=== PATIENT | male | born 1945 | race Caucasian/White ===

== ENCOUNTER 2025-04-11 20:05 | Emergency (ER) | payer OTHER, MEDICARE, SELFPAY ==
[2025-04-11] VITALS (7 sets, daily range): BP systolic 134–150; BP diastolic 62–67; PULSE 80–99; RESP 18–30; TEMP 37.2; O2SAT 90–92; BMI 24.9
--- NOTE | 2025-04-11 20:27 | DI.RAD.S_ITS ---
PROCEDURE: XR CHEST 1V INDICATIONS: suspected sepsis TECHNIQUE: One view of the chest was acquired. COMPARISON: Located Within [facility], CR, XR CHEST 2 VIEWS, 04/06/2025, 11:22. FINDINGS: Surgical changes and devices: None. Lungs and pleura: More prominent consolidation in the right lower lung as well as new consolidation in both upper lobes laterally and probably at the left base. Mediastinum: Mediastinal contours appear normal. Heart size is normal. Bones and chest wall: No suspicious bony lesions. Overlying soft tissues appear unremarkable. IMPRESSION: More prominent bilateral areas of consolidation as described, likely due to evolving multi lobar pneumonia. Dictated by: Ronald Dallas M.D. on 04/11/2025 at 21:02 Approved by: Ronald Dallas M.D. on 04/11/2025 at 21:07
--- NOTE | 2025-04-11 20:33 | EKG_ITS ---
[address] [address] Test Date: 2025-04-11 Pat Name: Tylor Hubbard Department: [facility] Room: Gender: Male Workers Compensation Consultant: : 1945 Requested By: Order Number: [id number] Reading MD: Pascual Evangelista Measurements Intervals [place] Rate: 97 P: 29 [place]: 142 QRS: -9 QRSD: 80 T: 40 QT: 332 QTc: 421 Interpretive Statements Sinus rhythm with occasional premature ventricular complexes Electronically Signed On 04-14-2025 17:11:31 PDT by Pascual Evangelista
--- NOTE | 2025-04-11 21:09 | PC.NURSE ---
pt states he has been taking a zpak for his pneumonia and he was feeling better until today, his last pill was yesterday, he thinks he just needed a little more medication.
[2025-04-11 21:18] LABS: Add Manual Diff / Slide Review NO; Basophils Absolute Auto 100 /uL (0-100); Basophils Percent Auto 0.8 % (0-2); Eosinophils Absolute Auto 1400 /uL (0-450); Eosinophils Percent Auto 10.1 % (2-4); Hematocrit 35.5 % (41-53); Hemoglobin 11.8 g/dL (13.5-17.5); Lymphocytes Absolute Auto 900 /uL (1100-4500); Lymphocytes Percent Auto 6.9 % (25-40); Mean Corpuscular HGB Conc 33.1 % (30-36); Mean Corpuscular Hemoglobin 28.3 PG (26-34); Mean Corpuscular Volume 85.7 fL (80-100); Monocytes Absolute Auto 1200 /uL (0-900); Monocytes Percent Auto 8.7 % (3-14); Neutrophils Absolute Auto 9900 /uL (1500-7000); Neutrophils Percent Auto 73.5 % (50-75); Platelet Count 358 X10^3/uL (150-400); Red Blood Cell Count 4.15 X10^6/uL (4.5-5.9); White Blood Cell Count 13.5 X10^3/uL (4.5-11.0)
[2025-04-11 21:24] LABS: INR 1.3 (0.9-1.3); Prothrombin Time 15.2 SECONDS (9.4-12.5)
[2025-04-11 21:27] LABS: PTT Partial Thromboplastin Tim 30 SECONDS (25.1-36.5)
[2025-04-11 21:39] LABS: Alanine Aminotransferase 29 IU/L (<50); Albumin 2.9 g/dL (3.5-5.0); Albumin Globulin Ratio 0.9 (1.0-2.8); Alkaline Phosphatase 85 U/L (38-126); Aspartate Aminotransferase 30 IU/L (17-59); BUN Creatinine Ratio 17.9 (6-22); Bilirubin Total 0.4 mg/dL (0.2-1.3); Blood Urea Nitrogen 15 mg/dL (9-20); Calcium 8.2 mg/dL (8.4-10.2); Carbon Dioxide 25 mmol/L (22-32); Chloride 102 mmol/L (98-107); Estimated Glomerular Filt Rate > 60 mL/min (>60); Globulin 3.3 g/dL (1.7-4.1); Glucose 155 mg/dL (70-99); HEMOLYSIS < 15 (0-50); Lipase 62 U/L (23-300); Potassium 4.2 mmol/L (3.4-5.1); Sodium 134 mmol/L (137-145); Total Protein 6.2 g/dL (6.3-8.2)
[2025-04-11 21:56] LABS: Procalcitonin 0.613 ng/mL (<0.5)
--- NOTE | 2025-04-11 22:27 | ED_ITS ---
HPI - URI/Sore Throat General Chief Complaint: Upper Respiratory Symptoms Stated Complaint: Pneumonia, x3wks, fever and chills Time Seen by Provider: 04/11/25 22:07 Source: patient Mode of arrival: Ambulatory History of Present Illness HPI Narrative: 79-year-old male has had ongoing cough for at least the last 3 weeks, fevers and chills last week, had completed a 5 day course of oral azithromycin 2 days ago, based on outpatient chest x-ray showing a pneumonia at [facility], was feeling better, now with increased cough, productive of green sputum, use of an inhaler. Feeling a little bit more short of breath. Denies chest pain. No longer feels feverish today. Related Data Previous Rx's Medication Instructions Recorded amoxicillin 875 mg-potassium 1 tab PO BID #20 tabs 04/11/25 clavulanate 125 mg tablet doxycycline hyclate 100 mg capsule 100 mg PO BID #20 caps 04/11/25 Allergies Allergy/AdvReac Type Severity Reaction Status Date / Time No Known Drug Allergies Allergy Verified 04/11/25 20:18 Patient History Social History Smoking Status: Former smoker Smoking Status: Former smoker Exam Narrative Exam Narrative: GENERAL: Well-developed patient, in mild distress. HEAD: Atraumatic. Normocephalic. EYES: Pupils equal round and reactive. Extraocular motions intact. No scleral icterus. No injection or drainage. ENT: Nose without bleeding, purulent drainage. Throat without erythema, tonsillar hypertrophy or exudate. Airway patent. NECK: Trachea midline. Non tender CARDIOVASCULAR: Regular rate and rhythm without murmurs, gallops, or rubs. RESPIRATORY: Clear to auscultation. Breath sounds equal bilaterally. Right basilar rhonchi, no respiratory distress, no retractions, speaks in full sentences. GASTROINTESTINAL: Abdomen soft, non-tender, nondistended. EXTREMITIES: No edema or joint tenderness. BACK: Nontender without deformity or crepitance. No flank tenderness. NEURO: AOx3. Motor functions grossly nonfocal SKIN: No rash or erythema of visible areas Initial Vital Signs Initial Vital Signs: Vital Signs Temperature 98.9 F 04/11/25 20:18 Pulse Rate 99 H 04/11/25 20:18 Respiratory Rate 18 04/11/25 20:18 Blood Pressure 135/64 04/11/25 20:18 Pulse Oximetry 92 04/11/25 20:18 Oxygen Delivery Method Room Air 04/11/25 20:18 Course Orders Ordered: ED Orders 04/11/25 20:27 XR chest 1V Stat EKG-12 Lead Stat RT Consult Eval and Treat NOW 04/11/25 21:10 Complete Blood Count AUTO DIFF Stat Comprehensive Metabolic Panel Stat Lactate (Lactic Acid) Stat Lipase Stat PTT Partial Thromboplastin Juwan Stat Procalcitonin Stat Prothrombin Time INR Stat 04/11/25 22:10 Blood Culture Stat Lactate (Lactic Acid) Stat Discontinued Medications Doxycycline Hyclate (Doxycycline Hyclate 100 Mg Tablet) 100 mg PO NOW ONE Stop: 04/11/25 22:30 Last Admin: 04/11/25 22:56 Dose: 100 mg Documented By: ALMAS Sodium Chloride (Normal Saline 0.9%) 1,000 mls @ 1,000 mls/hr IV BOLUS ONE Stop: 04/11/25 21:26 Last Admin: 04/11/25 23:05 Dose: Not Given Documented By: ALMAS Ceftriaxone Sodium 1,000 mg/ (Sodium Chloride) 100 mls @ 200 mls/hr IV NOW ONE Stop: 04/11/25 22:30 Last Infusion: 04/11/25 23:21 Dose: Infused Documented By: Admin: 04/11/25 22:55 Dose: 200 mls/hr Documented By: ALMAS Ondansetron HCl (Ondansetron 4 Mg/2 Ml Inj) 4 mg IV NOW PRN PRN Reason: Nausea And Vomiting Ondansetron HCl (Ondansetron 4 Mg Odt) 4 mg PO NOW PRN PRN Reason: Nausea And Vomiting Vital Signs Vital signs: Vital Signs - 8 hr 04/11/25 20:18 04/11/25 20:39 04/11/25 21:00 Temperature 98.9 F Pulse Rate 99 H 97 H 97 H Respiratory Rate 18 30 H 28 H Blood Pressure 135/64 Pulse Oximetry 92 90 L 91 Oxygen Delivery Method Room Air 04/11/25 21:00 04/11/25 21:30 04/11/25 21:30 Temperature Pulse Rate 95 H Respiratory Rate 22 Blood Pressure 134/65 139/63 Pulse Oximetry 90 L Oxygen Delivery Method 04/11/25 22:00 04/11/25 22:00 04/11/25 22:30 Temperature Pulse Rate 83 Respiratory Rate 25 H Blood Pressure 134/64 136/62 Pulse Oximetry 92 Oxygen Delivery Method 04/11/25 22:30 04/11/25 23:00 04/11/25 23:00 Temperature Pulse Rate 80 86 Respiratory Rate 26 H 28 H Blood Pressure 150/67 H Pulse Oximetry 91 Oxygen Delivery Method MDM - URI/Sore Throat Lab Data Lab results narrative: White blood cell count 17255, hemoglobin 11.8, platelets adequate. Glucose 155. Renal function normal. Sodium 134 low, potassium 4.2 normal. Serum CO2 25. Liver functions normal. Procalcitonin elevated. 04/11/25 21:10 04/11/25 21:10 Labs: Lab Results 04/11/25 04/11/25 Range/Units 21:10 22:10 WBC 13.5 H (4.5-11.0) X10^3/uL RBC 4.15 L (4.5-5.9) X10^6/uL Hgb 11.8 L (13.5-17.5) g/dL Hct 35.5 L (41-53) % MCV 85.7 (80-100) fL MCH 28.3 (26-34) PG MCHC 33.1 (30-36) % RDW 14.0 (11.6-14.8) % Plt Count 358 (150-400) X10^3/uL Neut % (Auto) 73.5 (50-75) % Lymph % (Auto) 6.9 L (25-40) % Johnson % (Auto) 8.7 (3-14) % Eos % (Auto) 10.1 H (2-4) % Baso % (Auto) 0.8 (0-2) % Neut # (Auto) 9900 H (9272-1156) /uL Lymph # (Auto) 900 L (5628-3725) /uL Johnson # (Auto) 1200 H (0-900) /uL Eos # (Auto) 1400 H (0-450) /uL Baso # (Auto) 100 (0-100) /uL PT 15.2 H (9.4-12.5) SECONDS INR 1.3 (0.9-1.3) APTT 30 (25.1-36.5) SECONDS Sodium 134 L (137-145) mmol/L Potassium 4.2 (3.4-5.1) mmol/L Chloride 102 (98-107) mmol/L Carbon Dioxide 25 (22-32) mmol/L BUN 15 (9-20) mg/dL Creatinine 0.84 (0.66-1.25) mg/dL Estimated GFR > 60 (>60) mL/min BUN/Creatinine Ratio 17.9 (6-22) Glucose 155 H (70-99) mg/dL Lactate 1.0 0.9 (0.7-2.1) mmol/L Calcium 8.2 L (8.4-10.2) mg/dL Total Bilirubin 0.4 (0.2-1.3) mg/dL AST 30 (17-59) IU/L ALT 29 (<50) IU/L Alkaline Phosphatase 85 (38-126) U/L Total Protein 6.2 L (6.3-8.2) g/dL Albumin 2.9 L (3.5-5.0) g/dL Globulin 3.3 (1.7-4.1) g/dL Albumin/Globulin Ratio 0.9 L (1.0-2.8) Lipase 62 (23-300) U/L Procalcitonin 0.613 H (<0.5) ng/mL Imaging Data Chest x-ray: Radiologist's Impression: [address] [address] XRay Report Signed Patient: Tylor Hubbard MR#: [id number] : 1945 Acct:[id number] Age/Sex: 79 / M Date of Service: 04/11/25 Loc: ED Accession Number: [id number] Procedure: XR chest 1V Ordering Provider: Braydon Awad MD PROCEDURE: XR CHEST 1V INDICATIONS: suspected sepsis TECHNIQUE: One view of the chest was acquired. COMPARISON: [facility], , XR CHEST 2 VIEWS, 04/06/2025, 11:22. FINDINGS: Surgical changes and devices: None. Lungs and pleura: More prominent consolidation in the right lower lung as well as new consolidation in both upper lobes laterally and probably at the left base. Mediastinum: Mediastinal contours appear normal. Heart size is normal. Bones and chest wall: No suspicious bony lesions. Overlying soft tissues appear unremarkable. IMPRESSION: More prominent bilateral areas of consolidation as described, likely due to evolving multi lobar pneumonia. Dictated by: Ronald Dallas M.D. on 04/11/2025 at 21:02 Approved by: Ronald Dallas M.D. on 04/11/2025 at 21:07 ECG Data Attestation: I personally reviewed and interpreted this ECG as follows: Interpretation: Normal sinus rhythm with rate of 97, no obvious ST segment elevation or depression changes. Wandering baseline lateral leads noted. ME 142, QRS 80, QTC 421. MDM Narrative Medical decision making narrative: 79-year-old male with recent course azithromycin for pneumonia, completed course, now with increased shortness of breath. Afebrile, sirs screen negative. Normotensive, no tachycardia, no tachypnea, no oxygen requirement. Crackles right base without retractions or wheezing. Chest x-ray today shows multifocal pneumonia changes. Blood culture sent, IV ceftriaxone, oral doxycycline. Consider admission. Patient does not want to be admitted at this time, wants to take further antibiotics as an outpatient for now. Family in attendance were supportive of his decision. Trial of outpatient treatment for now. Prescription for oral Augmentin and oral doxycycline 10 days course sent to his pharmacy. Recheck lung exam with PCP advised later this week. Return precautions discussed. Discharged home per patient request. Discharge Plan Departure Patient Disposition: Home Clinical Impression: Pneumonia Activity Restrictions/Additional Instructions: Recent course of azithromycin for pneumonia on outpatient chest x-ray. Increased cough and some shortness of breath. No oxygen requirement. Blood pressure normal range. No fast heart rate. No fast respiratory rate. Crackles right base on lung exam noted. Speaking in full sentences. Chest x-ray suspicious for multi focal pneumonia today. IV antibiotics and oral doxycycline antibiotic given. We discussed hospital admission, you declined this for now. You would like a further trial of outpatient treatment at this time. We will give prescription for oral Augmentin and doxycycline to take as an outpatient for now. Recheck lungs advised with your regular doctor in the next few days. Return to this/nearest emergency department for any change worsening symptoms or any concerns prior. Prescriptions: New amoxicillin-pot clavulanate 875-125 mg tablet 1 tab PO BID Qty: 20 0RF doxycycline hyclate 100 mg capsule 100 mg PO BID Qty: 20 0RF Stand Alone Forms: Patient Portal/API/Survey
[2025-04-11 22:43] LABS: Lactate (Lactic Acid) 0.9 mmol/L (0.7-2.1)
[2025-04-11] MEDS: cefTRIAXone 1,000 MG in SODIUM CHLORIDE 0.9% 100 ML 200 MG IV (22:55)
[2025-04-11] MEDS: DOXYCYCLINE HYCLATE 100 MG TABLET PO (22:56)
== END 2025-04-11 23:25 | disposition home or self-care (01) ==
PROVIDERS: Emergency Provider Emergency Medicine
DX: J18.9 Pneumonia, unspecified organism (principal)
CPT/HCPCS: 36415; 71045; 80053; 83605; 83690; 84145; 85025; 85610; 85730; 87040; 93005; 96365; 99284; J0696

== ENCOUNTER 2025-04-15 08:38 | Inpatient (IN) | payer OTHER, SELFPAY ==
[2025-04-15] VITALS (10 sets, daily range): BP systolic 126–143; BP diastolic 49–67; PULSE 90–106; RESP 15–30; TEMP 36.6–37.1; O2SAT 88–97; BMI 24.4
--- NOTE | 2025-04-15 09:26 | DI.CT.S_ITS ---
PROCEDURE: CT ANGIO CHEST PE PROTOCOL INDICATIONS: cough/sob/ multifocal pneumonia/ low 02 TECHNIQUE: After the administration of intravenous contrast, 2 mm thick sections acquired from the pulmonary apices to the posterior costophrenic angles. 3-dimensional maximum intensity projection (MIP) coronal and sagittal reformats were then acquired through the thorax. For radiation dose reduction, the following was used: automated exposure control, adjustment of mA and/or kV according to patient size. COMPARISON: None. FINDINGS: Image quality: Diagnostic. Pulmonary arteries: Pulmonary arteries are normal in size, and demonstrate no intraluminal filling defects to suggest central pulmonary embolism. Lower Neck: No enlarged lymph nodes. Thyroid: No thyroid nodules which require sonographic follow up, per consensus guidelines. Axillae: No enlarged lymph nodes. Chest Wall: Unremarkable. Bones: Unremarkable. Lungs and Pleura: Small right pleural effusion and trace left pleural effusion.. Extensive airspace opacities are noted scattered in bilateral upper and lower lobes as well as right middle lobe most notably in right lower lobe extending to hilar region. No pneumothorax. Central and peripheral airway is patent. Heart: Heart size is enlarged. No pericardial effusion. Thoracic Vessels: No aortic aneurysm. Mediastinum and Shona: Enlarged precarinal lymph node measures 1.7 cm in size is seen. Large right hilar lymph node measures up to 1.6 cm in size. Esophagus: No wall thickening. No significant hiatal hernia. Upper Abdomen: Visualized upper abdomen solid organs and bowel loops appear normal. IMPRESSION: 1. No pulmonary embolus. No thoracic aortic aneurysm or gross dissection. 2. Extensive bilateral multilobar infiltrates most notably in right lower lobe. No pneumothorax. Small right greater than left bilateral pleural effusion. 3. Enlarged mediastinal and lung right hilar lymph nodes likely reactive in nature. Cardiomegaly, no pericardial effusion. Dictated by: Isai Wheat M.D. on 04/15/2025 at 10:52 Approved by: Isai Wheat M.D. on 04/15/2025 at 10:56
--- NOTE | 2025-04-15 09:29 | ED_ITS ---
HPI - URI/Sore Throat General Chief Complaint: Shortness of Breath/Dyspnea Stated Complaint: Pneumonia Not getting any better Time Seen by Provider: 04/15/25 09:05 Source: patient and family Mode of arrival: Ambulatory History of Present Illness HPI Narrative: 79-year-old history of bladder cancer currently on chemo seen by PCP 2 weeks ago for pneumonia placed on Z-Markus initially 2 Mondays ago that did not resolve his symptoms was then seen this past Friday here in our ER diagnosed again with multifocal pneumonia given Augmentin and doxycycline to go home on presents today with continued weakness, decreased appetite, shortness of breath at this time. Other than what is stated 14 point review of system is negative. Related Data Previous Rx's ?Medication ?Instructions ?Recorded amoxicillin 875 mg-potassium 1 tab PO BID #20 tabs 01/04 clavulanate 125 mg tablet doxycycline hyclate 100 mg capsule 100 mg PO BID #20 c aps 04/11/25 Allergies Allergy/AdvReac Type Severity Reaction Status Date / Time No Known Drug Allergies Allergy Verified 04/15/25 09:20 Review of Systems Review of Systems ROS Unobtainable: All systems reviewed & are unremarkable except as noted in HPI and below Patient History Social History Smoking Status: Former smoker Smoking Status: Former smoker tobacco type: cigarettes Exam Narrative Exam Narrative: GENERAL: [79] year old patient appears stated age. Well-developed patient, in mild distress. HEAD: Atraumatic. Normocephalic. EYES: Pupils equal round and reactive. Extraocular motions intact. No scleral icterus. No injection or drainage. NECK: Trachea midline. Non tender CARDIOVASCULAR: Regular rate and rhythm without murmurs, gallops, or rubs. RESPIRATORY: Decrease breath sounds with crackles at the bases GASTROINTESTINAL: Abdomen soft, non-tender, nondistended. EXTREMITIES: No edema or joint tenderness. BACK: Nontender without deformity or crepitance. No flank tenderness. NEURO: AOx3. SKIN: No rash or erythema of visible areas Initial Vital Signs Initial Vital Signs: Vital Signs Temperature 98.7 F 04/15/25 09:12 Pulse Rate 90 04/15/25 09:12 Respiratory Rate 22 04/15/25 09:12 Blood Pressure 141/67 H 04/15/25 09:12 Pulse Oximetry 88 L 04/15/25 09:12 Oxygen Delivery Method Room Air 04/15/25 09:12 Course Orders Ordered: ED Orders 04/15/25 09:26 CT angio chest PE protocol Stat Venous Blood Gas STAT 04/15/25 09:27 Blood Culture Stat Complete Blood Count AUTO DIFF Stat Comprehensive Metabolic Panel Stat Lactate (Lactic Acid) Stat Lipase Stat PTT Partial Thromboplastin Juwan Stat Procalcitonin Stat Prothrombin Time INR Stat EKG-12 Lead Stat RT Consult Eval and Treat NOW 04/15/25 09:34 Procalcitonin Stat Ondansetron HCl (Ondansetron 4 Mg/2 Ml Inj) 4 mg IV NOW PRN PRN Reason: Nausea And Vomiting Ondansetron HCl (Ondansetron 4 Mg Odt) 4 mg PO NOW PRN PRN Reason: Nausea And Vomiting Discontinued Medications Albuterol/Ipratropium (Albuterol/Ipratropium 3 Ml Ampul) 3 ml INH NOW ONE Stop: 04/15/25 09:27 Sodium Chloride (Normal Saline 0.9%) 1,000 mls @ 1,000 mls/hr IV BOLUS ONE Stop: 04/15/25 10:25 Vital Signs Vital signs: Vital Signs - 8 hr 04/15/25 09:12 Temperature 98.7 F Pulse Rate 90 Respiratory Rate 22 Blood Pressure 141/67 H Pulse Oximetry 88 L Oxygen Delivery Method Room Air MDM - URI/Sore Throat Imaging Data CT scan - chest: Radiologist's Impression: [place] [address] CT Scan Report Signed Patient: Tylor Hubbard MR#: [id number] : 1945 Acct:[id number] Age/Sex: 79 / M Date of Service: 04/15/25 Loc: ED Accession Number: [id number] Procedure: CT angio chest PE protocol Ordering Provider: Ulices Hansen D.O. PROCEDURE: CT ANGIO CHEST PE PROTOCOL INDICATIONS: cough/sob/ multifocal pneumonia/ low 02 TECHNIQUE: After the administration of intravenous contrast, 2 mm thick sections acquired from the pulmonary apices to the posterior costophrenic angles. 3-dimensional maximum intensity projection (MIP) coronal and sagittal reformats were then acquired through the thorax. For radiation dose reduction, the following was used: automated exposure control, adjustment of mA and/or kV according to patient size. COMPARISON: None. FINDINGS: Image quality: Diagnostic. Pulmonary arteries: Pulmonary arteries are normal in size, and demonstrate no intraluminal filling defects to suggest central pulmonary embolism. Lower Neck: No enlarged lymph nodes. Thyroid: No thyroid nodules which require sonographic follow up, per consensus guidelines. Axillae: No enlarged lymph nodes. Chest Wall: Unremarkable. Bones: Unremarkable. Lungs and Pleura: Small right pleural effusion and trace left pleural effusion.. Extensive airspace opacities are noted scattered in bilateral upper and lower lobes as well as right middle lobe most notably in right lower lobe extending to hilar region. No pneumothorax. Central and peripheral airway is patent. Heart: Heart size is enlarged. No pericardial effusion. Thoracic Vessels: No aortic aneurysm. Mediastinum and Shona: Enlarged precarinal lymph node measures 1.7 cm in size is seen. Large right hilar lymph node measures up to 1.6 cm in size. Esophagus: No wall thickening. No significant hiatal hernia. Upper Abdomen: Visualized upper abdomen solid organs and bowel loops appear normal. IMPRESSION: 1. No pulmonary embolus. No thoracic aortic aneurysm or gross dissection. 2. Extensive bilateral multilobar infiltrates most notably in right lower lobe. No pneumothorax. Small right greater than left bilateral pleural effusion. 3. Enlarged mediastinal and lung right hilar lymph nodes likely reactive in nature. Cardiomegaly, no pericardial effusion. Dictated by: Isai Wheat M.D. on 04/15/2025 at 10:52 Approved by: Isai Wheat M.D. on 04/15/2025 at 10:56 ECG Data Interpretation: NSR HR 98 ME 150 QRS [address]-t wave change Unchanged from previous ekg 04/11/25 [facility] Narrative Medical decision making narrative: All lab work, vital signs, nurse triage note, medication list, previous ER visit and all imaging studies reviewed. Blood cultures obtained and patient given Levaquin IV here along with 1 L of lactated Ringer's. Troponin was normal. CTA PE study show extensive bilateral multi lobular infiltrates most notably in the right lower lobe no pneumothorax. Patient originally came in on O2 sat of 88% on room air now with 2 L nasal cannula up to 92%. EKG showed normal sinus rhythm no STT wave changes heart rate of 98. Differential diagnosis includes failed outpatient treatment, pneumonia, STEMI NSTEMI, sepsis. Case discussed with Dr. Evangelista who has graciously accepted patient for inpatient admission Discharge Plan Departure Patient Disposition: Admitted As Inpatient Clinical Impression: Pneumonia Qualifiers: Pneumonia type: due to Pneumococcus Laterality: bilateral Lung location: lower lobe of lung Qualified Code(s): J13 - Pneumonia due to Streptococcus pneumoniae Admit Date/Time: 04/15/25 11:59 Admit Provider: Pascual Evangelista
--- NOTE | 2025-04-15 10:07 | EKG_ITS ---
[address] [address] Test Date: 2025-04-15 Pat Name: Tylor Hubbard Department: Room: Gender: Male [employer] Department Supervisor: : 1945 Requested By: Order Number: [id number] Reading MD: Pascual Evangelista Measurements Intervals [place] Rate: 98 P: 28 IA: 150 QRS: -16 QRSD: 90 T: 44 QT: 350 QTc: 446 Interpretive Statements Normal sinus rhythm Minimal voltage criteria for LVH, may be normal variant ( R in aVL ) Nonspecific ST abnormality Electronically Signed On 04-15-2025 16:18:50 PDT by Pascual Evangelista
[2025-04-15] MEDS: ALBUTEROL/IPRATROPIUM 3 ML AMPUL INH (10:45)
[2025-04-15 11:07] LABS: Base Excess VBG 1.2 mmol/L (0-4); HCO3 VBG 27 mmol/L (24-28); Oxygen Saturation VBG 59 % (70-75); PCO2 VBG 43.5 mmHg (45-50); PO2 VBG 31 mmHg (35-45); Total CO2 VBG 25 mmol/L (24-29); pH VBG 7.39 (7.33-7.43)
[2025-04-15] MEDS: LACTATED RINGERS 1,000 ML 1000 ML IV (11:16)
[2025-04-15] MEDS: levoFLOXacin 500 MG/100 ML PIGGYBACK 100 MG IV (11:17)
--- NOTE | 2025-04-15 11:20 | RT ---
pt torsten neb tx well, on 2lpm nc and no distress noted
[2025-04-15 11:34] LABS: INR 1.3 (0.9-1.3); Prothrombin Time 14.9 SECONDS (9.4-12.5)
[2025-04-15 11:37] LABS: PTT Partial Thromboplastin Tim 31 SECONDS (25.1-36.5)
[2025-04-15 11:38] LABS: Add Manual Diff / Slide Review YES; Hematocrit 34.8 % (41-53); Hemoglobin 11.4 g/dL (13.5-17.5); Mean Corpuscular HGB Conc 32.8 % (30-36); Mean Corpuscular Hemoglobin 28.3 PG (26-34); Mean Corpuscular Volume 86.3 fL (80-100); Platelet Count 457 X10^3/uL (150-400); Red Blood Cell Count 4.03 X10^6/uL (4.5-5.9); Red Cell Distribution Width 14.5 % (11.6-14.8); White Blood Cell Count 16.2 X10^3/uL (4.5-11.0)
[2025-04-15 11:39] LABS: Alanine Aminotransferase 27 IU/L (<50); Albumin 2.9 g/dL (3.5-5.0); Albumin Globulin Ratio 0.9 (1.0-2.8); Alkaline Phosphatase 89 U/L (38-126); Aspartate Aminotransferase 37 IU/L (17-59); BUN Creatinine Ratio 16.3 (6-22); Bilirubin Total 0.5 mg/dL (0.2-1.3); Blood Urea Nitrogen 14 mg/dL (9-20); Calcium 8.4 mg/dL (8.4-10.2); Carbon Dioxide 25 mmol/L (22-32); Chloride 102 mmol/L (98-107); Estimated Glomerular Filt Rate > 60 mL/min (>60); Globulin 3.3 g/dL (1.7-4.1); Glucose 123 mg/dL (70-99); HEMOLYSIS < 15 (0-50); Lactate (Lactic Acid) 1.2 mmol/L (0.7-2.1); Lipase 38 U/L (23-300); Potassium 4.2 mmol/L (3.4-5.1); Sodium 134 mmol/L (137-145); Total Protein 6.2 g/dL (6.3-8.2)
[2025-04-15 11:56] LABS: Procalcitonin 0.702 ng/mL (<0.5); Procalcitonin 0.715 ng/mL (<0.5)
[2025-04-15] MEDS: guaiFENesin Solution 100 MG/5 ML UDC PO (12:12)
--- NOTE | 2025-04-15 12:19 | P.HP_ITS ---
History of Present Illness History of Present Illness Date Patient Seen: 04/15/25 Time Patient Seen: 13:00 Chief complaint: Pneumonia Not getting any better Narrative: He was a 79-year-old male with a history of bladder cancer and diabetes. He lives in [place] with his . He received 2 this is a for presumed pneumonia. The 1st was a Z-Markus in the 2nd was a combination of therapy. He had minimal improvement with either has had persistent intermittent coughing and today became very weak and diaphoretic. He was too weak to get up from his shower chair and ultimately his daughter brought him to this hospital. They do prefer this hospital over other [facility]. He was had some shakes, his cough is intermittent. He denies any wheezing. He was unsure about fevers. He was had some diarrhea. He denies any dysuria or hematuria. He was hypoxemic in the ED and placed on oxygen. [facility] Social History Smoking Status: Former smoker Meds Home Medications and Allergies Home Medications ?Medication ?Instructions ?Recorded ?Confirmed ?Type amoxicillin 875 mg-potassium 1 tab PO BID #20 tabs 01/04 Rx clavulanate 125 mg tablet doxycycline hyclate 100 mg capsule 100 mg PO BID #20 c aps 04/11/25 Rx Allergies Allergy/AdvReac Type Severity Reaction Status Date / Time No Known Drug Allergies Allergy Verified 04/15/25 09:20 Review of Systems Review of Systems Narrative: All else reviewed and otherwise unremarkable except as noted in the history and physical. Exam Vital Signs (past 8 hours): - 04/15/25 09:12 04/15/25 10:45 04/15/25 11:28 Temperature 98.7 F Pulse Rate 90 94 H 95 H Respiratory Rate 22 22 26 H Blood Pressure 141/67 H Pulse Oximetry 88 L 94 93 Oxygen Delivery Method Room Air Nasal Cannula Oxygen Flow Rate 2.5 04/15/25 11:29 04/15/25 11:30 Temperature 98.8 F Pulse Rate 94 H 99 H Respiratory Rate 22 24 Blood Pressure 143/67 H Pulse Oximetry 95 95 Oxygen Delivery Method Nasal Cannula Oxygen Flow Rate 2 Oxygen Delivery Method Nasal Cannula Oxygen Flow Rate 2 Narrative Exam Narrative: NAD, alert and oriented, fluent speech, calm. Normocephalic skull, EOMI, anicteric sclera, symmetric pupils. Oropharynx unremarkable, no droop. Neck supple, midline trachea, no adenopathy. Lungs clear, normal rate and effort. Heart regular, no murmur gallop or rub. Abdomen is soft, non distended and non tender. Extremities are free of edema. Skin is free of rash or lesions. Joints are not swollen or deformed. Judgment appears to be normal. Objective Imaging Chest x-ray: Radiologist's impression: More prominent bilateral areas of consolidation as described, likely due to evolving multi lobar pneumonia. CT scan - chest: Radiologist's impression: 1. No pulmonary embolus. No thoracic aortic aneurysm or gross dissection. 2. Extensive bilateral multilobar infiltrates most notably in right lower lobe. No pneumothorax. Small right greater than left bilateral pleural effusion. 3. Enlarged mediastinal and lung right hilar lymph nodes likely reactive in nature. Cardiomegaly, no pericardial effusion. Labs 04/15/25 11:08 04/15/25 11:08 Labs: Laboratory Results - last 24 hr 04/15/25 04/15/25 04/15/25 11:04 11:08 11:08 WBC 16.2 H RBC 4.03 L Hgb 11.4 L Hct 34.8 L MCV 86.3 MCH 28.3 MCHC 32.8 RDW 14.5 Plt Count 457 H Neut % (Auto) Not Reportable Lymph % (Auto) Not Reportable [place] % (Auto) Not Reportable Eos % (Auto) Not Reportable Baso % (Auto) Not Reportable Lymph # (Auto) Not Reportable [place] # (Auto) Not Reportable Baso # (Auto) Not Reportable PT 14.9 H INR 1.3 APTT 31 VBG pH 7.39 VBG pCO2 43.5 L VBG pO2 31 L VBG HCO3 27 VBG Total CO2 25 VBG O2 Saturation 59 L VBG Base Excess 1.2 Sodium 134 L Potassium 4.2 Chloride 102 Carbon Dioxide 25 BUN 14 Creatinine 0.86 Estimated GFR > 60 BUN/Creatinine Ratio 16.3 Glucose 123 H Lactate 1.2 Calcium 8.4 Total Bilirubin 0.5 AST 37 ALT 27 Alkaline Phosphatase 89 Total Protein 6.2 L Albumin 2.9 L Globulin 3.3 Albumin/Globulin Ratio 0.9 L Lipase 38 Procalcitonin 0.715 H 0.702 H Assessment & Plan Assessment & Plan narrative: 1. Community-acquired pneumonia, present on admission and active. This is persistent despite 2 courses of oral antibiotics. 2. Acute hypoxic respiratory failure, present on admission and active. 3. Bladder cancer, stable. 4. Diabetes mellitus 2, stable. Plan: -IV levofloxacin. -monitor blood cultures. -wean oxygen as able. -physical therapy consult on April 16 Full resuscitation, confirmed today. is proxy decision maker. Anticipate 2 midnights in the hospital, supports inpatient status. Time-Based Coding :: 35 min spent with patient and on the chart (including review of chart, obtaining history, exam, reviewing outside data, placing orders, documenting exam and treatment plan, and counseling patient) on 04/15. Quality MIPS - Admit I confirm the patient?s Advance Care Plan is present, Code status is documented, Surrogate decision maker is in patient?s record [If Yes, STOP here]: Yes MIPS - Meds 'Current medications' to include all prescriptions, [id number] products, herbals, cannabis/cannabidiol products, and vitamin/mineral/dietary (nutritional) supplements. I have utilized all available resources to obtain, update, or review the patient?s current medications. [If Yes, STOP here]: Yes
--- NOTE | 2025-04-15 12:32 | PC.NURSE ---
Pt sitting on stretcher, 2LPM NC O2, NAD, A&ox4, breathing even/equal/unlabored at this time. Call light within reach, no needs at this time. Report to Tony WILKERSON
--- NOTE | 2025-04-15 12:55 | PC.NURSE ---
Day shift: Pt in room from ED at approx 1250. He is able to walk. Agrees to not get OOB w/o help from staff. Oriented to room and call light. BEd alarm is on for safety. Call light in reach. Family member in room for support. VS WNL. 2L NC 96%.
[2025-04-15 13:10] LABS: Neutrophils Absolute Manual 12636 /uL (3000-5900); RBC Morphology Normal Morphology; Total Cells Counted 100
[2025-04-15 14:58] LABS: Adenovirus Not Detected (Not Detect); B. parapertussis Not Detected (Not Detecte); Bordetella pertussis Not Detected (Not Detect); Chlamydophila pneumoniae Not Detected (Not Detect); Coronavirus 229E Not Detected (Not Detect); Coronavirus HKU1 Not Detected (Not Detect); Coronavirus NL 63 Not Detected (Not Detect); Coronavirus OC43 Not Detected (Not Detect); Human Metapneumovirus Not Detected (Not Detect); Human Rhinovirus/Enterovirus Not Detected (Not Detect); Influenza A Not Detected (Not Detect); Influenza B Not Detected (Not Detect); Mycoplasma pneumoniae Not Detected (Not Detect); Parainfluenza Virus 1 Not Detected (Not Detect); Parainfluenza Virus 2 Not Detected (Not Detect); Parainfluenza Virus 3 Not Detected (Not Detect); Parainfluenza Virus 4 Not Detected (Not Detect); Respiratory Syncytial Virus Not Detected (Not Detect); SARS- CoV-2 Not Detected (Not Detecte)
[2025-04-15] MEDS: CODEINE/GUAIFENESIN LIQUID 5ML UDC 5 ML PO (15:31)
[2025-04-15] MEDS: BENZONATATE 100 MG CAPSULE PO ×2 (17:07→23:29)
[2025-04-15] MEDS: ALBUTEROL 2.5 MG/3 ML NEB (ADULT) INH (17:29)
[2025-04-15 20:08] LABS: Adenovirus F 40/41 Not Detected (Not Detect); Astrovirus Not Detected (Not Detect); Campylobacter Not Detected (Not Detect); Clostridium difficile toxin AB Not Detected (Not Detect); Cryptosporidium Not Detected (Not Detect); Cyclospora cayetanensis Not Detected (Not Detect); Entamoeba histolytica Not Detected (Not Detect); Enteroaggregative E.coli Not Detected (Not Detect); Enteropathogenic E.coli Not Detected (Not Detect); Enterotoxigenic E.coli It/st Not Detected (Not Detect); Giardia lamblia Not Detected (Not Detect); Norovirus GI/GII Not Detected (Not Detect); Plesiomonsa shigelloides Not Detected (Not Detect); Rotavirus A Not Detected (Not Detect); Salmonella Not Detected (Not Detect); Sapovirus Not Detected (Not Detect); Shiga-like toxin-prod E.coli Not Detected (Not Detect); Shigella/Enteroinvasive E.coli Not Detected (Not Detect); Vibrio Not Detected (Not Detect); Vibrio cholerae Not Detected (Not Detect); Yersinia enterocolitica Not Detected (Not Detect)
[2025-04-15] MEDS: HEPARIN 5,000 UNIT/ML VIAL 5000 UNIT SUBCUT (21:10)
[2025-04-15] MEDS: SODIUM CHLORIDE 0.9% FLUSH 10 ML IV (21:10)
[2025-04-15] MEDS: guaiFENesin ER 600 MG TAB PO (21:10)
[2025-04-15] MEDS: GABAPENTIN 400 MG CAPSULE PO (21:10)
[2025-04-15] MEDS: MELATONIN 3 MG TABLET 6 MG PO (23:30)
[2025-04-16] VITALS (9 sets, daily range): BP systolic 130–138; BP diastolic 58–62; PULSE 84–110; RESP 18–24; TEMP 36.4–38.4; O2SAT 87–96
[2025-04-16] MEDS: CODEINE/GUAIFENESIN LIQUID 5ML UDC 5 ML PO ×3 (02:23→15:40)
[2025-04-16] MEDS: ACETAMINOPHEN 325 MG TABLET 650 MG PO ×3 (02:26→14:42)
[2025-04-16 04:49] LABS: Add Manual Diff / Slide Review NO; Basophils Absolute Auto 100 /uL (0-100); Eosinophils Absolute Auto 700 /uL (0-450); Eosinophils Percent Auto 6.1 % (2-4); Hematocrit 32.5 % (41-53); Hemoglobin 10.9 g/dL (13.5-17.5); Lymphocytes Absolute Auto 700 /uL (1100-4500); Lymphocytes Percent Auto 5.4 % (25-40); Mean Corpuscular HGB Conc 33.6 % (30-36); Mean Corpuscular Hemoglobin 28.5 PG (26-34); Mean Corpuscular Volume 84.7 fL (80-100); Monocytes Absolute Auto 1300 /uL (0-900); Monocytes Percent Auto 10.7 % (3-14); Neutrophils Absolute Auto 9300 /uL (1500-7000); Neutrophils Percent Auto 76.8 % (50-75); Platelet Count 438 X10^3/uL (150-400); Red Blood Cell Count 3.84 X10^6/uL (4.5-5.9); Red Cell Distribution Width 14.4 % (11.6-14.8); White Blood Cell Count 12.1 X10^3/uL (4.5-11.0)
[2025-04-16 05:06] LABS: BUN Creatinine Ratio 17.2 (6-22); Blood Urea Nitrogen 15 mg/dL (9-20); Calcium 8.3 mg/dL (8.4-10.2); Carbon Dioxide 27 mmol/L (22-32); Chloride 100 mmol/L (98-107); Estimated Glomerular Filt Rate > 60 mL/min (>60); Glucose 127 mg/dL (70-99); HEMOLYSIS < 15 (0-50); Sodium 131 mmol/L (137-145)
--- NOTE | 2025-04-16 07:26 | P.PN_ITS ---
Subjective Subjective Interval history: S: Doing okay on oxygen, still coughing intermittently. This is primarily nonproductive. He is somewhat clammy but overall is comfortable. Exam Vital Signs (past 8 hours): Oxygen Delivery Method Nasal Cannula Oxygen Flow Rate 3 Narrative Exam Narrative: NAD, alert and oriented. Fluent speech. Lungs are clear, normal rate and effort. He has scattered rhonchi. Heart is regular, no murmur gallop or rub. Abdomen is soft, non distended. Extremities are free of edema. Objective Labs 04/16/25 04:13 04/16/25 04:13 Labs: Laboratory Results - last 24 hr 04/15/25 04/15/25 04/15/25 11:04 11:08 11:08 WBC 16.2 H RBC 4.03 L Hgb 11.4 L Hct 34.8 L MCV 86.3 MCH 28.3 MCHC 32.8 RDW 14.5 Plt Count 457 H Neut % (Auto) Not Reportable Lymph % (Auto) Not Reportable [place] % (Auto) Not Reportable Eos % (Auto) Not Reportable Baso % (Auto) Not Reportable Neut # (Auto) Lymph # (Auto) Not Reportable [place] # (Auto) Not Reportable Eos # (Auto) Baso # (Auto) Not Reportable Total Counted 100 Seg Neutrophils % 76.0 H Band Neutrophils % 2.0 L Lymphocytes % (Manual) 16.0 L Monocytes % (Manual) 2.0 Eosinophils % (Manual) 2.0 Metamyelocytes % 2.0 H Neutrophils # (Manual) 98445 H RBC Morphology Normal morphology PT 14.9 H INR 1.3 APTT 31 VBG pH 7.39 VBG pCO2 43.5 L VBG pO2 31 L VBG HCO3 27 VBG Total CO2 25 VBG O2 Saturation 59 L VBG Base Excess 1.2 Sodium 134 L Potassium 4.2 Chloride 102 Carbon Dioxide 25 BUN 14 Creatinine 0.86 Estimated GFR > 60 BUN/Creatinine Ratio 16.3 Glucose 123 H Lactate 1.2 Calcium 8.4 Total Bilirubin 0.5 AST 37 ALT 27 Alkaline Phosphatase 89 Total Protein 6.2 L Albumin 2.9 L Globulin 3.3 Albumin/Globulin Ratio 0.9 L Lipase 38 Procalcitonin 0.715 H 0.702 H Stl C. cayetanensis PCR Stool Rotavirus (PCR) Stool Adenovirus (PCR) Stool Astrovirus (PCR) Stool Cryptosporidium PCR Stl E.coli Shiga Tox PCR St Sh/Enteroin Ecoli PCR Stl Enterotoxigenic E PCR Stool EPEC (PCR) Stl E. histolytica PCR Stool Giardia Lamblia PCR Stool Sapovirus (PCR) Stl P. shigelloides PCR St Y.enterocolitica PCR Stool Vibrio (PCR) Stl Vibrio cholerae PCR Stl Enteroaggr Ecoli PCR Stl Norovirus GI/GII PCR Chlamy pneumoniae PCR Adenovirus (PCR) B. pertussis DNA (PCR) B.parapertussis DNA PCR Campylobacter (PCR) C. difficile Tox (PCR) Coronavirus OC43 (PCR) Coronavirus HKU1 (PCR) Coronavirus 229E (PCR) SARS-CoV-2 (PCR) Coronavirus NL63 (PCR) Human Metapneumovir PCR Influenza Type A (PCR) Influenza Type B (PCR) M. pneumoniae (PCR) Parainfluenza 1 (PCR) Parainfluenza 2 (PCR) Parainfluenza 3 (PCR) Parainfluenza 4 (PCR) RSV (PCR) Entero/Rhino (PCR) Salmonella (PCR) 04/15/25 04/15/25 04/16/25 13:46 18:30 04:13 WBC 12.1 H RBC 3.84 L Hgb 10.9 L Hct 32.5 L MCV 84.7 MCH 28.5 MCHC 33.6 RDW 14.4 Plt Count 438 H Neut % (Auto) 76.8 H Lymph % (Auto) 5.4 L [place] % (Auto) 10.7 Eos % (Auto) 6.1 H Baso % (Auto) 1.0 Neut # (Auto) 9300 H Lymph # (Auto) 700 L [place] # (Auto) 1300 H Eos # (Auto) 700 H Baso # (Auto) 100 Total Counted Seg Neutrophils % Band Neutrophils % Lymphocytes % (Manual) Monocytes % (Manual) Eosinophils % (Manual) Metamyelocytes % Neutrophils # (Manual) RBC Morphology PT INR APTT VBG pH VBG pCO2 VBG pO2 VBG HCO3 VBG Total CO2 VBG O2 Saturation VBG Base Excess Sodium 131 L Potassium 4.0 Chloride 100 Carbon Dioxide 27 BUN 15 Creatinine 0.87 Estimated GFR > 60 BUN/Creatinine Ratio 17.2 Glucose 127 H Lactate Calcium 8.3 L Total Bilirubin AST ALT Alkaline Phosphatase Total Protein Albumin Globulin Albumin/Globulin Ratio Lipase Procalcitonin Stl C. cayetanensis PCR Not detected Stool Rotavirus (PCR) Not detected Stool Adenovirus (PCR) Not detected Stool Astrovirus (PCR) Not detected Stool Cryptosporidium PCR Not detected Stl E.coli Shiga Tox PCR Not detected St Sh/Enteroin Ecoli PCR Not detected Stl Enterotoxigenic E PCR Not detected Stool EPEC (PCR) Not detected Stl E. histolytica PCR Not detected Stool Giardia Lamblia PCR Not detected Stool Sapovirus (PCR) Not detected Stl P. shigelloides PCR Not detected St Y.enterocolitica PCR Not detected Stool Vibrio (PCR) Not detected Stl Vibrio cholerae PCR Not detected Stl Enteroaggr Ecoli PCR Not detected Stl Norovirus GI/GII PCR Not detected Chlamy pneumoniae PCR Not detected Adenovirus (PCR) Not detected B. pertussis DNA (PCR) Not detected B.parapertussis DNA PCR Not detected Campylobacter (PCR) Not detected C. difficile Tox (PCR) Not detected Coronavirus OC43 (PCR) Not detected Coronavirus HKU1 (PCR) Not detected Coronavirus 229E (PCR) Not detected SARS-CoV-2 (PCR) Not detected Coronavirus NL63 (PCR) Not detected Human Metapneumovir PCR Not detected Influenza Type A (PCR) Not detected Influenza Type B (PCR) Not detected M. pneumoniae (PCR) Not detected Parainfluenza 1 (PCR) Not detected Parainfluenza 2 (PCR) Not detected Parainfluenza 3 (PCR) Not detected Parainfluenza 4 (PCR) Not detected RSV (PCR) Not detected Entero/Rhino (PCR) Not detected Salmonella (PCR) Not detected [facility] Social History household members: spouse Smoking Status: Former smoker Assessment & Plan Assessment & Plan narrative: 1. Community-acquired pneumonia, present on admission and active. This is persistent despite 2 courses of oral antibiotics. 2. Acute hypoxic respiratory failure, present on admission and active. 3. Bladder cancer, stable. 4. Diabetes mellitus 2, stable. Plan: -Continue IV levofloxacin. -monitor blood cultures. Negative so far. -wean oxygen as able. -physical therapy consult on April 16 He requires another night in the hospital for IV antibiotics for his significant pneumonia. His diabetes increases his risk of adverse outcomes of pneumonia and hypoxic failure. Full resuscitation, confirmed today. is proxy decision maker. Anticipate 2 midnights in the hospital, supports inpatient status. Time-Based Coding :: [TOTAL MINUTES] spent with patient and on the chart (including review of chart, obtaining history, exam, reviewing outside data, placing orders, documenting exam and treatment plan, and counseling patient) on [DATE]. Quality VTE Deep Vein Thrombosis/Pulmonary Embolism Present on Admission: No
[2025-04-16] MEDS: levoFLOXacin 750 MG/150 ML PIGGYBACK 100 MG IV (08:22)
[2025-04-16] MEDS: HEPARIN 5,000 UNIT/ML VIAL 5000 UNIT SUBCUT ×2 (08:22→21:10)
[2025-04-16] MEDS: guaiFENesin ER 600 MG TAB PO ×2 (08:23→21:09)
[2025-04-16] MEDS: SODIUM CHLORIDE 0.9% FLUSH 10 ML IV ×2 (09:54→21:11)
[2025-04-16] MEDS: LOPERAMIDE 2 MG CAPSULE PO (09:56)
[2025-04-16] MEDS: BENZONATATE 100 MG CAPSULE PO ×2 (12:39→18:54)
[2025-04-16] MEDS: ALBUTEROL 2.5 MG/3 ML NEB (ADULT) INH (13:13)
--- NOTE | 2025-04-16 14:26 | CM.DANOTE ---
Addendum entered by JACKIE Okeefe 04/16/25 14:37: Correction: Physical address states [address] Bain, patient and spouse live in [place] ([place] of [place], [address]) Original Note: Initial DCP Assessment Note Pt is a 79 yo male, resident of [place], admitted INPT for management of PNA, failed outpatient treatment. PCP: Priya Mendez Payer: Paige NERI Reviewed chart, pt discussed in multidisciplinary rounds this morning. FABRIZIO 04/18. PT pending. Patient lives independently with spouse in [place]. Supportive family have been at bedside today visiting. No barriers identified at this time to patient's safe discharge home w/family to assist; close outpatient f/u recommended, when medically cleared. CM team will plan to follow clinical course closely in case any DC needs or concerns arise. JACKIE Mcmahon Discharge Planning/Care Management CM Discharge Assessment Start: 04/15/25 12:04 Freq: Status: Active Protocol: Document 04/16/25 14:23 EYAL (Rec: 04/16/25 14:25 [email or web address] [id number]) Discharge Planning Assessment Assigned Discharge JACKIE Martines Lap Checker DPOA/Assigned Yun Hubbard, spouse Designee Name Contact Information [phone] Advance Directives? Yes Advance Directives No on File History Provided By Patient,Family Member Prior Living House Arrangements Household Members spouse Independent with ADL Yes 's Is patient alert and Yes oriented? Discharge Plan Home Transportation Family Arrangement Referrals Initiated None needed
[2025-04-16] MEDS: GABAPENTIN 400 MG CAPSULE PO (21:09)
[2025-04-16] MEDS: MELATONIN 3 MG TABLET 6 MG PO (21:10)
[2025-04-16] MEDS: IBUPROFEN 400 MG TABLET PO (21:11)
[2025-04-16 21:50] LABS: Appearance Urine UA CLEAR; Bilirubin Urine UA NEGATIVE (NEGATIVE); Color Urine UA YELLOW; Glucose Urine UA NEGATIVE (Negative); Ketones Urine UA NEGATIVE (NEGATIVE); Leukocyte Esterase Urine UA NEGATIVE (NEGATIVE); Nitrite Urine UA NEGATIVE (Negative); Occult Blood Urine UA NEGATIVE (Negative); Protein Urine UA 1+ (Negative); Specific Gravity Urine UA >=1.030 (1.000-1.035); Urobilinogen Urine UA 0.2 E.U./dL (0.2)
[2025-04-16 23:39] LABS: RBC Urine 0-1/HPF (0-5/HPF); Urine Volume 10mL (spun); WBC Urine 0-1/HPF (0-5/HPF)
[2025-04-16 23:40] LABS: Bacteria Urine Occasional (0-1); Calcium Oxalate Crystals Urine Occasional; Culture Indicated Urine Cult Not Indicated; Squamous Epithelial Cell Urine None Seen (0-5/HPF)
[2025-04-17] VITALS (13 sets, daily range): BP systolic 123–149; BP diastolic 54–67; PULSE 88–124; RESP 16–20; TEMP 36.4–37.2; O2SAT 90–97
[2025-04-17] MEDS: ALBUTEROL 2.5 MG/3 ML NEB (ADULT) INH ×6 (02:52→23:13)
[2025-04-17 04:38] LABS: Hematocrit 33.7 % (41-53); Hemoglobin 11.3 g/dL (13.5-17.5); Mean Corpuscular HGB Conc 33.5 % (30-36); Mean Corpuscular Hemoglobin 28.7 PG (26-34); Mean Corpuscular Volume 85.6 fL (80-100); Platelet Count 427 X10^3/uL (150-400); Red Blood Cell Count 3.93 X10^6/uL (4.5-5.9); Red Cell Distribution Width 14.5 % (11.6-14.8); White Blood Cell Count 10.5 X10^3/uL (4.5-11.0)
[2025-04-17 04:41] LABS: Add Manual Diff / Slide Review YES
[2025-04-17 04:47] LABS: BUN Creatinine Ratio 15.4 (6-22); Blood Urea Nitrogen 14 mg/dL (9-20); Calcium 8.5 mg/dL (8.4-10.2); Carbon Dioxide 28 mmol/L (22-32); Chloride 101 mmol/L (98-107); Estimated Glomerular Filt Rate > 60 mL/min (>60); Glucose 143 mg/dL (70-99); HEMOLYSIS < 15 (0-50); Potassium 4.2 mmol/L (3.4-5.1); Sodium 136 mmol/L (137-145)
[2025-04-17 05:06] LABS: Neutrophils Absolute Manual 8190 /uL (3000-5900); Total Cells Counted 100
[2025-04-17 05:07] LABS: RBC Morphology Normal Morphology
--- NOTE | 2025-04-17 07:44 | P.PN_ITS ---
Subjective Subjective Interval history: Summary: He was a 79-year-old male with a history of bladder cancer and diabetes. He lives in [place] with his . He received 2 this is a for presumed pneumonia. The 1st was a Z-Markus in the 2nd was a combination of therapy. He had minimal improvement with either has had persistent intermittent coughing and today became very weak and diaphoretic. He was too weak to get up from his shower chair and ultimately his daughter brought him to this hospital. They do prefer this hospital over other [facility]. He was had some shakes, his cough is intermittent. He denies any wheezing. He was unsure about fevers. He was had some diarrhea. S: He is feeling little bit better today. He is still having intermittent coughing. He did have a low-grade fever overnight and is using an incentive spirometer and a pickle. He is on 3 L of oxygen and breathing comfortably. Exam Vital Signs (past 8 hours): - 04/16/25 23:48 04/17/25 04:49 Temperature 98.3 F 97.6 F Pulse Rate 84 92 H Respiratory Rate 19 19 Blood Pressure 123/54 L Pulse Oximetry 96 92 Oxygen Flow Rate 3 4 Oxygen Delivery Method Nasal Cannula Oxygen Flow Rate 4 Narrative Exam Narrative: NAD, alert and oriented. Fluent speech. Lungs are clear, normal rate and effort. Right posterior base crackles. Heart is regular, no murmur gallop or rub. Abdomen is soft, non distended. Extremities are free of edema. Objective Imaging Multiple studies: : Radiologist's impression: Chest x-ray: Radiologist's impression: More prominent bilateral areas of consolidation as described, likely due to evolving multi lobar pneumonia. CT scan - chest: Radiologist's impression: 1. No pulmonary embolus. No thoracic aortic aneurysm or gross dissection. 2. Extensive bilateral multilobar infiltrates most notably in right lower lobe. No pneumothorax. Small right greater than left bilateral pleural effusion. 3. Enlarged mediastinal and lung right hilar lymph nodes likely reactive in nature. Cardiomegaly, no pericardial effusion. Labs 04/17/25 04:16 04/17/25 04:16 Labs: Laboratory Results - last 24 hr 04/16/25 04/17/25 20:35 04:16 WBC 10.5 RBC 3.93 L Hgb 11.3 L Hct 33.7 L MCV 85.6 MCH 28.7 MCHC 33.5 RDW 14.5 Plt Count 427 H Neut % (Auto) Not Reportable Lymph % (Auto) Not Reportable [place] % (Auto) Not Reportable Eos % (Auto) Not Reportable Baso % (Auto) Not Reportable Lymph # (Auto) Not Reportable [place] # (Auto) Not Reportable Baso # (Auto) Not Reportable Total Counted 100 Seg Neutrophils % 78.0 H Lymphocytes % (Manual) 10.0 L Atypical Lymphs % 1.0 H Monocytes % (Manual) 6.0 Eosinophils % (Manual) 2.0 Metamyelocytes % 3.0 H Neutrophils # (Manual) 8190 H RBC Morphology Normal morphology Sodium 136 L Potassium 4.2 Chloride 101 Carbon Dioxide 28 BUN 14 Creatinine 0.91 Estimated GFR > 60 BUN/Creatinine Ratio 15.4 Glucose 143 H Calcium 8.5 Urine Color Yellow Urine Appearance Clear Urine pH 6.0 Ur Specific [place] >=1.030 H Urine Protein 1+ H Urine Glucose (UA) Negative Urine Ketones Negative Urine Occult Blood Negative Urine Nitrate Negative Urine Bilirubin Negative Urine Urobilinogen 0.2 Ur Leukocyte Esterase Negative Urine RBC 0-1/hpf Urine WBC 0-1/hpf Ur Squamous Epith Cells None seen Calcium Oxalate Crystal Occasional H Urine Bacteria Occasional (0-1) Ur Culture Indicated? Cult not indicated Vol Urine Centrifuged 10ml (spun) [facility] Social History household members: spouse Smoking Status: Former smoker Assessment & Plan Assessment & Plan narrative: 1. Community-acquired pneumonia, present on admission and active. This is persistent despite 2 courses of oral antibiotics. 2. Acute hypoxic respiratory failure, present on admission and active. 3. Bladder cancer, stable. 4. Diabetes mellitus 2, stable. Plan: -Continue IV levofloxacin for another [place]. -monitor blood cultures, remain negative. -wean oxygen as able. @ 3L NC today. -physical therapy consult on April 16 Can possibly discharge in 1-2 days pending his clinical status and oxygenation. He is followed by Priya Mendez physician mail handler assistant at [facility]. Full resuscitation, confirmed today. is proxy decision maker. Anticipate 3 midnights in the hospital, supports inpatient status. Time-Based Coding :: [TOTAL MINUTES] spent with patient and on the chart (including review of chart, obtaining history, exam, reviewing outside data, placing orders, documenting exam and treatment plan, and counseling patient) on [DATE]. Quality VTE Deep Vein Thrombosis/Pulmonary Embolism Present on Admission: No
[2025-04-17] MEDS: ACETAMINOPHEN 325 MG TABLET 650 MG PO ×3 (08:01→22:06)
[2025-04-17] MEDS: guaiFENesin ER 600 MG TAB PO ×2 (08:42→20:57)
[2025-04-17] MEDS: HEPARIN 5,000 UNIT/ML VIAL 5000 UNIT SUBCUT ×2 (08:42→20:56)
[2025-04-17] MEDS: levoFLOXacin 750 MG/150 ML PIGGYBACK 150 MG IV (08:42)
[2025-04-17] MEDS: SODIUM CHLORIDE 0.9% FLUSH 10 ML IV ×2 (08:42→20:57)
[2025-04-17] MEDS: LOPERAMIDE 2 MG CAPSULE PO ×2 (08:53→13:08)
[2025-04-17] MEDS: IBUPROFEN 400 MG TABLET PO ×2 (10:01→18:13)
--- NOTE | 2025-04-17 13:59 | CM.DPNOTE ---
DCP Note TELETYPE CLERK reviewed EMR per provider in morning rounds, pt has continued fevers. another day of IV abx. anticipate dc tomorrow. No barriers identified at this time to patient's safe discharge home w/family to assist; close outpatient f/u recommended, when medically cleared. CM team will plan to follow clinical course closely in case any DC needs or concerns arise. JACKIE Vincent
[2025-04-17] MEDS: MELATONIN 3 MG TABLET 6 MG PO (20:57)
[2025-04-17] MEDS: GABAPENTIN 400 MG CAPSULE PO (20:57)
[2025-04-18] VITALS (8 sets, daily range): BP systolic 128; BP diastolic 50–64; PULSE 86–107; RESP 18–20; TEMP 36.4–37.7; O2SAT 88–95
[2025-04-18] MEDS: ALBUTEROL 2.5 MG/3 ML NEB (ADULT) INH ×4 (03:40→20:04)
[2025-04-18 04:59] LABS: Hematocrit 33.9 % (41-53); Hemoglobin 11.2 g/dL (13.5-17.5); Mean Corpuscular HGB Conc 33.2 % (30-36); Mean Corpuscular Hemoglobin 28.5 PG (26-34); Mean Corpuscular Volume 85.8 fL (80-100); Platelet Count 443 X10^3/uL (150-400); Red Blood Cell Count 3.95 X10^6/uL (4.5-5.9); Red Cell Distribution Width 14.8 % (11.6-14.8); White Blood Cell Count 12.4 X10^3/uL (4.5-11.0)
[2025-04-18 05:00] LABS: Add Manual Diff / Slide Review YES
[2025-04-18 05:10] LABS: BUN Creatinine Ratio 20.5 (6-22); Blood Urea Nitrogen 17 mg/dL (9-20); Calcium 8.7 mg/dL (8.4-10.2); Carbon Dioxide 31 mmol/L (22-32); Chloride 100 mmol/L (98-107); Estimated Glomerular Filt Rate > 60 mL/min (>60); Glucose 145 mg/dL (70-99); HEMOLYSIS < 15 (0-50); Potassium 3.9 mmol/L (3.4-5.1); Sodium 136 mmol/L (137-145)
[2025-04-18] MEDS: ACETAMINOPHEN 325 MG TABLET 650 MG PO ×4 (05:10→21:47)
[2025-04-18 05:38] LABS: Neutrophils Absolute Manual 8184 /uL (3000-5900); Total Cells Counted 100
[2025-04-18 05:39] LABS: Platelet Estimate Increased on smear; RBC Morphology Normal Morphology
[2025-04-18] MEDS: guaiFENesin ER 600 MG TAB PO ×2 (05:58→08:59)
[2025-04-18] MEDS: HEPARIN 5,000 UNIT/ML VIAL 5000 UNIT SUBCUT ×2 (08:59→21:28)
[2025-04-18] MEDS: SODIUM CHLORIDE 0.9% FLUSH 10 ML IV ×2 (09:00→21:30)
[2025-04-18] MEDS: levoFLOXacin 750 MG/150 ML PIGGYBACK 100 MG IV (09:00)
--- NOTE | 2025-04-18 09:47 | PC.NURSE ---
Patient is alert and oriented x4, he has a cough and is on guaifenesin and this is helping bring some sputum up. Patient back to bed, will give him some tylenol for comfort now. LS sound clear but decreased in bases. Put oxygen down to 2L from 3L and sats 94%.
--- NOTE | 2025-04-18 13:31 | CM.DPC ---
DCP Cont: Per MD, pt remains on oxygen today but down from 3L to 2LO2 today and imaging to r/o ongoing PE. Per RN, pt able to ambulate independently in room to the BR and A&O x4 and does not feel PT eval needed at this time but confirms that pt appears to be feeling more poorly than yesterday. Plan: SW to follow closely for imaging results towards plan of discharge home with spouse when medically stable and any further identified discharge planning needs. JACKIE Pedro
--- NOTE | 2025-04-18 14:01 | DIET.CONS ---
Dietary Consultation Note Admission Date: 04/15/2025 11:59 Assessment: 79 Y M admitted for pneumonia. Dietitian consulted for weight loss. Met with pt at bedside who reports decrease in appetite over past month since start of chemo. Reports only able to do 2 small meals per day (i.e only able to have breakfast so far this morning, not hungry for lunch at all). Normally does 3 regular meals per day. drinks Ensure at home, open to doing them as well to support PO intakes. NFPE: No significant findings. Unable to fully assess clavicle region, pt lying down feeling nauseated. Ht: 182.88 cm Wt: 81.5 kg BMI: 24.4 UBW: 187 lb per pt (-4% weight loss within 1 month, non-severe) Last BM: 04/18/25 (04/18/25 10:00) MNA: 9 Femi Score: 19 Diet: 04/15/25 Dinner General (Regular) Diet Diet Modifications: Nutrition Percent Meal Consumed 75% 04/18/25 10:00 Percent Meal Consumed 100% 04/17/25 18:00 Percent Meal Consumed 75% 04/17/25 15:00 Percent Meal Consumed 50% 04/17/25 09:41 Percent Meal Consumed drank 50% of protein shake. 04/16/25 17:51 states i'm just not hungry Labs: RBC 3.95 X10^6/uL (4.5-5.9) L 04/18/25 04:44 Hgb 11.2 g/dL (13.5-17.5) L 04/18/25 04:44 Hct 33.9 % (41-53) L 04/18/25 04:44 Creatinine 0.83 mg/dL (0.66-1.25) 04/18/25 04:44 Lactate 1.2 mmol/L (0.7-2.1) 04/15/25 11:08 Nutrition Diagnosis: Unintentional weight loss r/t inadequate oral intakes aeb 4% weight loss in 1 month, non-severe Interventions: ONS+ BID EER: 2000 kcals (25 kcals/kg per BMI) 80-95 g protein (1-1.2g/kg per cancer w/ chemo) Monitoring/Evaluations: ONS tolerance, PO intakes Electronically Signed by: Nancy Phelan 04/18/25 14:01 Clinical Dietitian [address] [id number]
--- NOTE | 2025-04-18 18:18 | PM.PN.1 ---
Subjective Subjective Interval history: Summary: He was a 79-year-old male with a history of bladder cancer and diabetes admitted with a pneumonia. He is still on a couple L of O2 today, he is starting to feel a bit better today he thinks. Complains of coughing limiting his ability to sleep overnight. Exam Vital Signs (past 8 hours): Fraction of Inspired Oxygen 32 SaO2/FiO2 Ratio 296 Oxygen Delivery Method Room Air,Nasal Cannula Oxygen Flow Rate 2 Narrative Exam Narrative: NAD, alert and oriented. Fluent speech. Lungs are clear, normal rate and effort. Right posterior base crackles. Heart is regular, no murmur gallop or rub. Abdomen is soft, non distended. Extremities are free of edema. Objective Labs 04/18/25 04:44 04/18/25 04:44 Labs: Laboratory Results - last 24 hr 04/18/25 04:44 WBC 12.4 H RBC 3.95 L Hgb 11.2 L Hct 33.9 L MCV 85.8 MCH 28.5 MCHC 33.2 RDW 14.8 Plt Count 443 H Neut % (Auto) Not Reportable Lymph % (Auto) Not Reportable [place] % (Auto) Not Reportable Eos % (Auto) Not Reportable Baso % (Auto) Not Reportable Lymph # (Auto) Not Reportable [place] # (Auto) Not Reportable Baso # (Auto) Not Reportable Total Counted 100 Seg Neutrophils % 65.0 Band Neutrophils % 1.0 L Lymphocytes % (Manual) 13.0 L Monocytes % (Manual) 7.0 Eosinophils % (Manual) 13.0 H Basophils % (Manual) 1.0 Neutrophils # (Manual) 8184 H Platelet Estimate Increased on smear RBC Morphology Normal morphology Sodium 136 L Potassium 3.9 Chloride 100 Carbon Dioxide 31 BUN 17 Creatinine 0.83 Estimated GFR > 60 BUN/Creatinine Ratio 20.5 Glucose 145 H Calcium 8.7 PFSH Social History household members: spouse Smoking Status: Former smoker Assessment & Plan Assessment & Plan narrative: 1. Community-acquired pneumonia, present on admission and active. This is persistent despite 2 courses of oral antibiotics. 2. Acute hypoxic respiratory failure, present on admission and active. 3. Bladder cancer, stable. 4. Diabetes mellitus 2, stable. Plan: -Continue IV levofloxacin -monitor blood cultures, remain negative. -wean oxygen as able. @ 2-3 L -PT/OT -consider repeat imaging if persistent hypoxia without improvement tomorrow, though clinically he feels better today. Can possibly discharge in 1-2 days pending his clinical status and oxygenation. He is followed by Priya Mendez physician assistant pressman at [facility]. Full resuscitation, confirmed today. is proxy decision maker. Time-Based Coding :: [TOTAL MINUTES] spent with patient and on the chart (including review of chart, obtaining history, exam, reviewing outside data, placing orders, documenting exam and treatment plan, and counseling patient) on [DATE]. Quality VTE Deep Vein Thrombosis/Pulmonary Embolism Present on Admission: No
[2025-04-18] MEDS: IBUPROFEN 400 MG TABLET PO (18:22)
[2025-04-18] MEDS: MELATONIN 3 MG TABLET 6 MG PO (21:28)
[2025-04-18] MEDS: GABAPENTIN 400 MG CAPSULE PO (21:28)
[2025-04-18] MEDS: BENZONATATE 100 MG CAPSULE PO (21:30)
[2025-04-18] MEDS: CODEINE/GUAIFENESIN LIQUID 5ML UDC 5 ML PO (21:30)
[2025-04-18] MEDS: TRAZODONE 50 MG TABLET PO (21:30)
[2025-04-19] VITALS (7 sets, daily range): BP systolic 109–127; BP diastolic 64–67; PULSE 92–122; RESP 18–20; TEMP 36.5–37.2; O2SAT 92–96
[2025-04-19] MEDS: LOPERAMIDE 2 MG CAPSULE PO (06:07)
[2025-04-19] MEDS: ACETAMINOPHEN 325 MG TABLET 650 MG PO ×3 (06:07→18:35)
[2025-04-19] MEDS: CODEINE/GUAIFENESIN LIQUID 5ML UDC 5 ML PO ×3 (06:07→21:21)
[2025-04-19] MEDS: guaiFENesin ER 600 MG TAB PO ×2 (08:33→21:21)
[2025-04-19] MEDS: HEPARIN 5,000 UNIT/ML VIAL 5000 UNIT SUBCUT ×2 (08:33→21:25)
[2025-04-19] MEDS: levoFLOXacin 750 MG/150 ML PIGGYBACK 100 MG IV (08:34)
[2025-04-19] MEDS: ALBUTEROL 2.5 MG/3 ML NEB (ADULT) INH ×2 (11:06→20:02)
[2025-04-19 11:37] LABS: Hematocrit 37.3 % (41-53); Hemoglobin 12.5 g/dL (13.5-17.5); Mean Corpuscular HGB Conc 33.6 % (30-36); Mean Corpuscular Hemoglobin 28.7 PG (26-34); Mean Corpuscular Volume 85.4 fL (80-100); Platelet Count 545 X10^3/uL (150-400); Red Blood Cell Count 4.36 X10^6/uL (4.5-5.9); Red Cell Distribution Width 14.7 % (11.6-14.8); White Blood Cell Count 15.2 X10^3/uL (4.5-11.0)
[2025-04-19 11:38] LABS: Add Manual Diff / Slide Review YES
[2025-04-19 11:39] LABS: Alanine Aminotransferase 67 IU/L (<50); Albumin Globulin Ratio 0.9 (1.0-2.8); Alkaline Phosphatase 99 U/L (38-126); Aspartate Aminotransferase 73 IU/L (17-59); BUN Creatinine Ratio 16.7 (6-22); Bilirubin Total 0.4 mg/dL (0.2-1.3); Blood Urea Nitrogen 14 mg/dL (9-20); Calcium 8.9 mg/dL (8.4-10.2); Carbon Dioxide 32 mmol/L (22-32); Chloride 96 mmol/L (98-107); Estimated Glomerular Filt Rate > 60 mL/min (>60); Globulin 3.4 g/dL (1.7-4.1); Glucose 86 mg/dL (70-99); HEMOLYSIS < 15 (0-50); Potassium 4.5 mmol/L (3.4-5.1); Sodium 135 mmol/L (137-145); Total Protein 6.4 g/dL (6.3-8.2)
[2025-04-19 11:49] LABS: Neutrophils Absolute Manual 12160 /uL (3000-5900); RBC Morphology Normal Morphology; Rouleaux 1+; Total Cells Counted 100
--- NOTE | 2025-04-19 11:53 | DI.RAD.S_ITS ---
PROCEDURE: XR CHEST 2V INDICATIONS: worsening O2, assess for effusion or worsening infiltrate TECHNIQUE: 2 views of the chest were acquired. COMPARISON: [facility], CT, CT ANGIO CHEST PE PROTOCOL, 04/15/2025, 9:34. [facility], CR, XR CHEST 1V, 04/11/2025, 20:32. FINDINGS: Surgical changes and devices: Right chest wall port tip projects over the cavoatrial junction. Lungs and pleura: Similar multifocal airspace opacities. Trace right pleural effusion is unchanged from prior. Mediastinum: Mediastinal contours are normal. Heart size is normal. Bones and chest wall: No suspicious bony abnormalities. Soft tissues appear unremarkable. IMPRESSION: Similar multifocal airspace opacities. Dictated by: Travis Torre M.D. on 04/19/2025 at 12:50 Approved by: Travis Torre M.D. on 04/19/2025 at 12:52
[2025-04-19] MEDS: FUROSEMIDE 40 MG/4 ML VIAL IV (15:09)
--- NOTE | 2025-04-19 15:50 | P.PN_ITS ---
Subjective Subjective Interval history: Summary: He was a 79-year-old male with a history of bladder cancer and diabetes admitted with a pneumonia. He is still on a couple L of O2 today, he is starting to feel a bit better today he thinks. He is still on 2-3 L of O2 today, WBC increased. CXR ordered today without significant change. Exam Vital Signs (past 8 hours): - 04/19/25 08:00 04/19/25 11:27 04/19/25 15:36 Temperature 97.7 F Pulse Rate 92 H 122 H 101 H Respiratory Rate 18 20 20 Blood Pressure 109/64 Pulse Oximetry 96 92 92 Oxygen Delivery Method Nasal Cannula Nasal Cannula Oxygen Flow Rate 3 3 3 Fraction of Inspired Oxygen 32 Fraction of Inspired Oxygen 32 SaO2/FiO2 Ratio 284 Oxygen Delivery Method Nasal Cannula Oxygen Flow Rate 3 Narrative Exam Narrative: NAD, alert and oriented. Fluent speech. Lungs are with diffuse R crackles inferior > superior, normal rate and effort. Heart is regular, no murmur gallop or rub. Abdomen is soft, non distended. Extremities are free of edema. Objective Labs 04/19/25 11:15 04/19/25 11:15 Labs: Laboratory Results - last 24 hr 04/19/25 11:15 WBC 15.2 H RBC 4.36 L Hgb 12.5 L Hct 37.3 L MCV 85.4 MCH 28.7 MCHC 33.6 RDW 14.7 Plt Count 545 H Neut % (Auto) Not Reportable Lymph % (Auto) Not Reportable Roberts % (Auto) Not Reportable Eos % (Auto) Not Reportable Baso % (Auto) Not Reportable Lymph # (Auto) Not Reportable Roberts # (Auto) Not Reportable Baso # (Auto) Not Reportable Total Counted 100 Seg Neutrophils % 77.0 H Band Neutrophils % 3.0 Lymphocytes % (Manual) 4.0 L Atypical Lymphs % 1.0 H Monocytes % (Manual) 3.0 Eosinophils % (Manual) 12.0 H Neutrophils # (Manual) 56166 H RBC Morphology Normal morphology Rouleaux 1+ H Sodium 135 L Potassium 4.5 Chloride 96 L Carbon Dioxide 32 BUN 14 Creatinine 0.84 Estimated GFR > 60 BUN/Creatinine Ratio 16.7 Glucose 86 Calcium 8.9 Total Bilirubin 0.4 AST 73 H ALT 67 H Alkaline Phosphatase 99 Total Protein 6.4 Albumin 3.0 L Globulin 3.4 Albumin/Globulin Ratio 0.9 L [facility] Social History household members: spouse Smoking Status: Former smoker Assessment & Plan Assessment & Plan narrative: 1. Community-acquired pneumonia, present on admission and active. This is persistent despite 2 courses of oral antibiotics. 2. Acute hypoxic respiratory failure, present on admission and active. 3. Bladder cancer, stable. 4. Diabetes mellitus 2, stable. Plan: -Continue IV levofloxacin, with rising WBC consider alternative therapy tomorrow if continuing to rise. -monitor blood cultures, remain negative. -wean oxygen as able. @ 2-3 L -PT/OT -repeat imaging today without significant changes. Clinically he feels improved but having difficulty weaning from O2. Can possibly discharge in 1-2 days pending his clinical status and oxygenation. If able to wean from O2 he can discharge home. He is followed by Priya Mendez physician assistant professor of religion at [facility]. Full resuscitation, confirmed today. is proxy decision maker. Time-Based Coding :: [TOTAL MINUTES] spent with patient and on the chart (including review of chart, obtaining history, exam, reviewing outside data, placing orders, documenting exam and treatment plan, and counseling patient) on [DATE]. Quality VTE Deep Vein Thrombosis/Pulmonary Embolism Present on Admission: No
[2025-04-19] MEDS: ONDANSETRON 4 MG ODT SL (17:37)
--- NOTE | 2025-04-19 18:24 | PC.NURSE ---
Patient had an emesis earlier, got zofran odt ordered and given to patient. He denies any further nausea. Up to bathroom with 1 person assist. Sat up for most of the day. IV lasix given to patient has he had some edema to lower extremities. He has voided several times. Resting comfortably after eating dinner.
[2025-04-19] MEDS: GABAPENTIN 400 MG CAPSULE PO (21:21)
[2025-04-19] MEDS: TRAZODONE 50 MG TABLET PO (21:21)
[2025-04-19] MEDS: FAMOTIDINE 20 MG TABLET PO (21:21)
[2025-04-19] MEDS: BENZONATATE 100 MG CAPSULE PO (21:21)
[2025-04-19] MEDS: MELATONIN 3 MG TABLET 6 MG PO (21:21)
[2025-04-19] MEDS: IBUPROFEN 400 MG TABLET PO (21:22)
[2025-04-19] MEDS: SODIUM CHLORIDE 0.9% FLUSH 10 ML IV (21:25)
[2025-04-20 05:25] LABS: Add Manual Diff / Slide Review NO; Basophils Absolute Auto 100 /uL (0-100); Basophils Percent Auto 0.5 % (0-2); Eosinophils Absolute Auto 600 /uL (0-450); Eosinophils Percent Auto 5.2 % (2-4); Hematocrit 32.4 % (41-53); Lymphocytes Absolute Auto 1300 /uL (1100-4500); Lymphocytes Percent Auto 10.7 % (25-40); Mean Corpuscular HGB Conc 33.8 % (30-36); Mean Corpuscular Hemoglobin 28.6 PG (26-34); Mean Corpuscular Volume 84.6 fL (80-100); Monocytes Absolute Auto 1000 /uL (0-900); Monocytes Percent Auto 8.1 % (3-14); Neutrophils Absolute Auto 9000 /uL (1500-7000); Neutrophils Percent Auto 75.5 % (50-75); Platelet Count 473 X10^3/uL (150-400); Red Blood Cell Count 3.84 X10^6/uL (4.5-5.9); Red Cell Distribution Width 14.5 % (11.6-14.8)
[2025-04-20 05:37] LABS: Alanine Aminotransferase 55 IU/L (<50); Albumin 2.5 g/dL (3.5-5.0); Albumin Globulin Ratio 0.8 (1.0-2.8); Alkaline Phosphatase 80 U/L (38-126); Aspartate Aminotransferase 61 IU/L (17-59); BUN Creatinine Ratio 17.8 (6-22); Bilirubin Total 0.3 mg/dL (0.2-1.3); Blood Urea Nitrogen 16 mg/dL (9-20); Calcium 8.6 mg/dL (8.4-10.2); Carbon Dioxide 31 mmol/L (22-32); Chloride 97 mmol/L (98-107); Estimated Glomerular Filt Rate > 60 mL/min (>60); Globulin 3.1 g/dL (1.7-4.1); Glucose 112 mg/dL (70-99); HEMOLYSIS < 15 (0-50); Potassium 3.9 mmol/L (3.4-5.1); Sodium 134 mmol/L (137-145); Total Protein 5.6 g/dL (6.3-8.2)
[2025-04-20 07:00] VITALS: O2SAT 94
[2025-04-20] MEDS: FAMOTIDINE 20 MG TABLET PO (08:58)
[2025-04-20] MEDS: METFORMIN HCL 500 MG TABLET PO (08:58)
[2025-04-20] MEDS: HEPARIN 5,000 UNIT/ML VIAL 5000 UNIT SUBCUT (08:58)
[2025-04-20] MEDS: levoFLOXacin 750 MG/150 ML PIGGYBACK 100 MG IV (08:59)
[2025-04-20] MEDS: SODIUM CHLORIDE 0.9% FLUSH 10 ML IV (09:20)
[2025-04-20 09:47] VITALS: BP 126/54; PULSE 99; RESP 16; TEMP 36.2; O2SAT 95
[2025-04-20] MEDS: ALBUTEROL 2.5 MG/3 ML NEB (ADULT) INH (10:04)
[2025-04-20 10:08] VITALS: PULSE 99; RESP 20; O2SAT 94
--- NOTE | 2025-04-20 10:43 | DIET.PN1 ---
Dietary Progress Note Assessment: RD f/u Met with pt in room. Reports not tolerating chocolate Ensure plus last night, had emesis after drinking. Good appetite in morning. Would like to try Max protein vanilla instead. Adjusted ONS order. Will monitor ONS tolerance. Ht: 182.88 cm Wt: 81.5 kg BMI: 24.4 Last BM: 04/19/25 (04/19/25 12:11) MNA: 9 Femi Score: 21 Diet: 04/15/25 Dinner General (Regular) Diet Diet Modifications: Nutrition Percent Meal Consumed 100% 04/20/25 09:47 Percent Meal Consumed pt ref lunch and dinner 04/19/25 18:58 Percent Meal Consumed 25% 04/19/25 14:00 Percent Meal Consumed 75% 04/19/25 12:11 Percent Meal Consumed pt ref dinner 04/18/25 17:00 Percent Meal Consumed pt ref lunch 04/18/25 16:00 Labs: RBC 3.84 X10^6/uL (4.5-5.9) L 04/20/25 04:40 Hgb 11.0 g/dL (13.5-17.5) L 04/20/25 04:40 Hct 32.4 % (41-53) L 04/20/25 04:40 Creatinine 0.90 mg/dL (0.66-1.25) 04/20/25 04:40 Lactate 1.2 mmol/L (0.7-2.1) 04/15/25 11:08 Electronically Signed by: Nancy Phelan 04/20/25 10:43 Clinical Dietitian [address] [address]
--- NOTE | 2025-04-20 13:40 | P.DS_ITS ---
History of Present Illness History of Present Illness Date Patient Seen: 04/20/25 Time Patient Seen: 13:40 Chief complaint: Pneumonia Not getting any better Narrative: Per admitting provider, He was a 79-year-old male with a history of bladder cancer and diabetes. He lives in [place] with his . He received 2 this is a for presumed pneumonia. The 1st was a Z-Markus in the 2nd was a combination of therapy. He had minimal improvement with either has had persistent intermittent coughing and today became very weak and diaphoretic. He was too weak to get up from his shower chair and ultimately his daughter brought him to this hospital. They do prefer this hospital over other [facility] hospitals. He was had some shakes, his cough is intermittent. He denies any wheezing. He was unsure about fevers. He was had some diarrhea. He denies any dysuria or hematuria. He was hypoxemic in the ED and placed on oxygen. Discharge Providers Provider Date of admission: 04/15/25 11:59 Discharge Date: 04/20/25 Discharge provider: Zeeshan Mejia DO Summary Hospital Course Discharge Diagnosis: 1. Community-acquired bacterial pneumonia, present on admission and active. 2. Acute hypoxic respiratory failure, present on admission and active. 3. Bladder cancer, stable. 4. Diabetes mellitus 2, stable. Hospital Course: This is an 79 year old male with PMH of bladder cancer and DM who was admitted with acute hypoxic respiratory failure due to pneumonia. He was slow to improve with transition of his antibiotics to levofloxacin. After a couple of days he finally started to improve with regards to his dyspnea and cough. He began to feel much improve despite WBC increasing to 15. The following day he felt quite well and WBC improved to 12, however he was still requiring a small amount of supplemental oxygen. We discussed continued hospital management, or given clinical improvement discharge home with a presumed short course of oxygen. He elected for discharge home with oxygen. He will complete antibiotic course with levofloxacin for an additional 4 days after discharge. No other changes to his home medications were recommended at discharge. Time Spent with Patient Time spent: Greater than 30 minutes Exam Vital Signs (past 8 hours): - 04/20/25 07:00 04/20/25 09:47 04/20/25 10:08 Temperature 97.2 F L Pulse Rate 99 H 99 H Respiratory Rate 16 20 Blood Pressure 126/54 L Pulse Oximetry 94 95 94 Oxygen Delivery Method Nasal Cannula Nasal Cannula Oxygen Flow Rate 4 4 2 Fraction of Inspired Oxygen 32 SaO2/FiO2 Ratio 284 Oxygen Delivery Method Nasal Cannula Oxygen Flow Rate 2 Narrative Exam Narrative: NAD, alert and oriented. Fluent speech. Lungs are with diffuse R crackles inferior > superior, normal rate and effort. Heart is regular, no murmur gallop or rub. Abdomen is soft, non distended. Extremities are free of edema. Objective Labs 04/20/25 04:40 04/20/25 04:40 Labs: Laboratory Results - last 24 hr 04/20/25 04:40 WBC 12.0 H RBC 3.84 L Hgb 11.0 L Hct 32.4 L MCV 84.6 MCH 28.6 MCHC 33.8 RDW 14.5 Plt Count 473 H Neut % (Auto) 75.5 H Lymph % (Auto) 10.7 L Crowley % (Auto) 8.1 Eos % (Auto) 5.2 H Baso % (Auto) 0.5 Neut # (Auto) 9000 H Lymph # (Auto) 1300 Crowley # (Auto) 1000 H Eos # (Auto) 600 H Baso # (Auto) 100 Sodium 134 L Potassium 3.9 Chloride 97 L Carbon Dioxide 31 BUN 16 Creatinine 0.90 Estimated GFR > 60 BUN/Creatinine Ratio 17.8 Glucose 112 H Calcium 8.6 Total Bilirubin 0.3 AST 61 H ALT 55 H Alkaline Phosphatase 80 Total Protein 5.6 L Albumin 2.5 L Globulin 3.1 Albumin/Globulin Ratio 0.8 L PFSH Social History household members: spouse Smoking Status: Former smoker Discharge Plan Discharge Plan Patient Disposition: Home Provider Discharge Comment: You were admitted to the hospital with pnuemonia, you are improving but still requiring a small amount of oxygen. You wanted to discharge home today. I think you will not need oxygen for long, make sure you have a pulse oximeter at home and try to keep O2 between 89 and 96% at home. If you're above 89% you do not need oxygen at home anymore. Please follow up with PCP as soon as possible after discharge. Discharge orders & Medications Prescriptions: New levofloxacin 750 mg tablet 750 mg PO DAILY 4 Days Qty: 4 0RF Continued gabapentin 400 mg capsule 400 mg PO .HS metformin 500 mg tablet extended release 24 hr 500 mg PO DAILY loratadine 10 mg tablet 10 mg PO DAILY omeprazole 20 mg capsule,delayed release(DR/EC) 20 mg PO DAILY Discontinued amoxicillin-pot clavulanate 875-125 mg tablet 1 tab PO BID Qty: 20 0RF doxycycline hyclate 100 mg capsule 100 mg PO BID Qty: 20 0RF Diet/Activity/Treatments Diet: Diet as Tolerated and Regular Activity: No restrictions Oxygen: goal O2 89-96% while using supplemental therapy. Visit Report/Discharge Packet Stand Alone Forms: Patient Portal/API, Stroke Signs & Symptoms Quality VTE Deep Vein Thrombosis/Pulmonary Embolism Present on Admission: No
--- NOTE | 2025-04-20 13:40 | CM.DPC ---
Addendum entered by JACKIE Avila 04/20/25 13:55: Pt was medically cleared for home d/c today, family transported home. No further CM d/c assistance/resource needs are indicated at this time. Original Note: DCP Cont. Reviewed EMR and team rounds for pt's medical status and updates. Plan is still weaning down off of O2. Monitoring for final d/c needs.
--- NOTE | 2025-04-20 16:14 | PC.NURSE ---
Patient A&OX4, indenpendent ambulating around the room. He denies pain. VSS, afebrile on 4 LNC this a.m. He is weaned to 2 LNC later this afternoon. Hospitalist evluating patient and patient expressing wanting to discharge home today. He is ordered a home 02 eval with RT, and cleared for discharging home with 02. He is escorted by w/ch w/CLERK CASHIER with family member to private vehicle for discharge home this afternoon at approximately 1515. He acknowledges understanding of worsening symptoms, monitoring 02 levels, medications, and worsening symptoms.
== END 2025-04-20 15:15 | disposition home or self-care (01) | DRG 193 ==
LOC: ED 09:05 → AC 12:01
PROVIDERS: Internal Medicine; Admitting Provider Hospitalist; Emergency Provider Family Medicine; Referring Provider Family Medicine; Visit Provider Hospitalist
DX: J15.9 Unspecified bacterial pneumonia (principal); J96.01 Acute respiratory failure with hypoxia; C67.9 Malignant neoplasm of bladder, unspecified; E11.9 Type 2 diabetes mellitus without complications; Z87.891 Personal history of nicotine dependence; Z79.84 Long term (current) use of oral hypoglycemic drugs
CPT/HCPCS: 36415; 71046; 71275; 80048; 80053; 81001; 81003; 82805; 83605; 83690; 84145; 85007; 85025; 85610; 85730; 87040; 87507; 87633; 93005; 94618; 94640; 94760; 96365; 99285; A9270; J1644; J1938; J1956; J7613; Q9967

== ENCOUNTER 2025-04-27 19:53 | Inpatient (IN) | payer OTHER, SELFPAY ==
[2025-04-15 13:56] VITALS: BMI 24.4
[2025-04-27] VITALS (8 sets, daily range): BP systolic 125–145; BP diastolic 59–66; PULSE 93–110; RESP 25–40; TEMP 37.6; O2SAT 88–93; BMI 23.0
--- NOTE | 2025-04-27 20:13 | EKG_ITS ---
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
--- NOTE | 2025-04-27 20:21 | ED.GENADULT ---
HPI - General Adult General Chief complaint: Shortness of Breath/Dyspnea Stated complaint: Low oxygen Time Seen by Provider: 04/27/25 20:21 Source: family Mode of arrival: Wheelchair History of Present Illness HPI narrative: 80-year-old gentleman with a history of diabetes and bladder cancer discharged from [facility] on April 20 with community-acquired pneumonia, hypoxic respiratory failure and was discharged on 3 L of oxygen. Patient presents today states that he is increasingly short of breath he is found to be 82% on room air and 88% on 3 L in triage today. Complains of increasing fatigue. He is tachycardic, tachypneic but afebrile. Related Data Home Medications ?Medication ?Instructions ?Recorded ?Confirmed gabapentin 400 mg capsule 400 mg PO .HS 04/15/25 04/15/25 loratadine 10 mg tablet 10 mg PO DAILY 04/15/25 04/15/25 metformin 500 mg tablet,extended 500 mg PO DAILY 04/15/25 04/15/25 release 24 hr omeprazole 20 mg capsule,delayed 20 mg PO DAILY 04/15/25 04/15/25 release Allergies Allergy/AdvReac Type Severity Reaction Status Date / Time No Known Drug Allergies Allergy Verified 04/15/25 09:20 Review of Systems Review of Systems Narrative: Pertinent positive and negative findings as per HPI Patient History Medical History (Updated 04/27/25 @ 22:57 by Katie Lin MD) Acid reflux Diabetes Social History household members: spouse tobacco type: cigarettes Exam Initial Vital Signs Initial Vital Signs: Vital Signs Temperature 99.6 F 04/27/25 20:14 Pulse Rate 110 H 04/27/25 20:14 Respiratory Rate 40 H 04/27/25 20:14 Blood Pressure 136/61 04/27/25 20:14 Pulse Oximetry 88 L 04/27/25 20:14 Oxygen Delivery Method Nasal Cannula 04/27/25 20:14 Oxygen Flow Rate 3 04/27/25 20:14 General: in no acute distress. Able to speak in complete sentences. Well-nourished well-developed HEENT: Moist mucous membranes, normal sclera with reactive pupils, Neck: No JVD, no cervical adenopathy Respiratory: Lungs with minor wheezing in upper lung martinez, rhonchi in mid upper lung martinez Cardiac: Regular rate and rhythm no murmurs no bruits Abdomen: Soft, nontender, no rebound or guarding, no flank pain Skin: Mildly diaphoretic Neurologic: Grossly neurologically intact with no obvious asymmetries or abnormalities Extremities: No trauma, well perfused Psych: Cooperative, appropriate insight and affect Course Orders Ordered: ED Orders 04/27/25 20:17 BNP [NT-proBNP (BNP-Adult 18+)] Stat Complete Blood Count AUTO DIFF Stat Comprehensive Metabolic Panel Stat Lactate (Lactic Acid) Stat Lipase Stat PTT Partial Thromboplastin Juwan Stat Procalcitonin Stat Prothrombin Time INR Stat Trop I [Troponin I] Stat 04/27/25 20:18 EKG-12 Lead Stat RT Consult Eval and Treat NOW 04/27/25 20:22 CT angio chest PE protocol Stat 04/27/25 21:04 Blood Culture Stat 04/27/25 22:58 Sputum Culture Stat Vancomycin HCl/Dextrose (Vancomycin) 2,000 mg in 400 mls @ 200 mls/hr IV NOW ONE Stop: 04/28/25 00:59 Vancomycin HCl 1,000 mg/ (Sodium Chloride) 250 mls @ 250 mls/hr IV Q12H [facility] Ondansetron HCl (Ondansetron 4 Mg/2 Ml Inj) 4 mg IV NOW PRN PRN Reason: Nausea And Vomiting Ondansetron HCl (Ondansetron 4 Mg Odt) 4 mg PO NOW PRN PRN Reason: Nausea And Vomiting Discontinued Medications Albuterol/Ipratropium (Albuterol/Ipratropium 3 Ml Ampul) 3 ml INH NOW ONE Stop: 04/27/25 22:50 Sodium Chloride (Normal Saline 0.9%) 1,000 mls @ 1,000 mls/hr IV BOLUS ONE Stop: 04/27/25 21:17 Last Admin: 04/27/25 21:44 Dose: 1,000 mls/hr Documented By: ALMAS Cefepime HCl 2 gm/ Sodium (Chloride) 100 mls @ 200 mls/hr IV NOW ONE Stop: 04/27/25 22:50 Methylprednisolone (Methylprednisolone 125 Mg/2 Ml Vial) 125 mg IV NOW ONE Stop: 04/27/25 22:50 Vancomycin HCl (Vancomycin Per Pharmacy) 1 request MISC NOW ONE Stop: 04/27/25 22:50 Vital Signs Vital signs: Vital Signs - 8 hr 04/27/25 20:14 04/27/25 20:49 04/27/25 21:30 Temperature 99.6 F Pulse Rate 110 H 103 H 101 H Respiratory Rate 40 H 31 H 31 H Blood Pressure 136/61 134/61 139/63 Pulse Oximetry 88 L 93 92 Oxygen Delivery Method Nasal Cannula Nasal Cannula Nasal Cannula Oxygen Flow Rate 3 4 4 Medical Decision Making Lab Data 04/27/25 20:17 04/27/25 20:17 Labs: Lab Results 04/27/25 Range/Units 20:17 WBC 17.5 H (4.5-11.0) X10^3/uL RBC 4.07 L (4.5-5.9) X10^6/uL Hgb 11.3 L (13.5-17.5) g/dL Hct 34.6 L (41-53) % MCV 85.0 (80-100) fL MCH 27.8 (26-34) PG MCHC 32.7 (30-36) % RDW 14.7 (11.6-14.8) % Plt Count 530 H (150-400) X10^3/uL Neut % (Auto) 75.3 H (50-75) % Lymph % (Auto) 10.7 L (25-40) % Reagan % (Auto) 9.3 (3-14) % Eos % (Auto) 3.7 (2-4) % Baso % (Auto) 1.0 (0-2) % Neut # (Auto) 94307 H (2879-9184) /uL Lymph # (Auto) 1900 (6377-5815) /uL Reagan # (Auto) 1600 H (0-900) /uL Eos # (Auto) 700 H (0-450) /uL Baso # (Auto) 200 H (0-100) /uL PT 16.7 H (9.4-12.5) SECONDS INR 1.5 H (0.9-1.3) APTT 31 (25.1-36.5) SECONDS Sodium 130 L (137-145) mmol/L Potassium 4.5 (3.4-5.1) mmol/L Chloride 96 L (98-107) mmol/L Carbon Dioxide 28 (22-32) mmol/L BUN 18 (9-20) mg/dL Creatinine 0.90 (0.66-1.25) mg/dL Estimated GFR > 60 (>60) mL/min BUN/Creatinine Ratio 20.0 (6-22) Glucose 213 H D (70-99) mg/dL Lactate 1.9 (0.7-2.1) mmol/L Calcium 8.3 L (8.4-10.2) mg/dL Total Bilirubin 0.6 (0.2-1.3) mg/dL AST 68 H (17-59) IU/L ALT 50 H (<50) IU/L Alkaline Phosphatase 69 (38-126) U/L Troponin I 0.026 (0.01-0.034) ng/mL NT-Pro-B Natriuret Pep 371 (<450) pg/mL Total Protein 6.2 L (6.3-8.2) g/dL Albumin 2.9 L (3.5-5.0) g/dL Globulin 3.3 (1.7-4.1) g/dL Albumin/Globulin Ratio 0.9 L (1.0-2.8) Lipase 76 (23-300) U/L Procalcitonin 0.740 H (<0.5) ng/mL Imaging Data CT scan - chest: Radiologist's Impression: PROCEDURE: CT ANGIO CHEST PE PROTOCOL INDICATIONS: increased dyspnea TECHNIQUE: After the administration of intravenous contrast, 2 mm thick sections acquired from the pulmonary apices to the posterior costophrenic angles. 3-dimensional maximum intensity projection (MIP) coronal and sagittal reformats were then acquired through the thorax. For radiation dose reduction, the following was used: automated exposure control, adjustment of mA and/or kV according to patient size. COMPARISON: [facility], CT, CT ANGIO CHEST PE PROTOCOL, 04/15/2025, 9:34. FINDINGS: Image quality: Diagnostic. Pulmonary arteries: Pulmonary arteries are normal in size, and demonstrate no intraluminal filling defects to suggest central pulmonary embolism. More distal bilateral segmental pulmonary artery branches are suboptimally opacified, smaller distal pulmonary emboli cannot be entirely excluded. Lower Neck: No enlarged lymph nodes. Thyroid: No thyroid nodules which require sonographic follow up, per consensus guidelines. Axillae: No enlarged lymph nodes. Chest Wall: Unremarkable. Bones: Unremarkable. Lungs and Pleura: No pneumothorax or pleural effusions. There is interval further worsening of bilateral lung aeration with more common loaded appearance of extensive bilateral pulmonary infiltrates in the upper lobes. Worsening aeration and increased airspace opacity in right middle and lower lobe is also seen. Ill-defined masslike consolidations are noted in left lower lobe slightly improved compared to previous study. There is small right pleural effusion. No pneumothorax. Heart: Heart size is enlarged. No pericardial effusion. Thoracic Vessels: No aortic aneurysm. Mediastinum and Shona: Prominent mediastinal and bilateral hilar lymph nodes are again seen measures up to 1.9 cm in precarinal space compared to 1.5 cm on previous study. Esophagus: No wall thickening. No hiatal hernia. Upper Abdomen: Visualized upper abdomen solid organs and bowel loops appear normal. IMPRESSION: 1. No large central pulmonary emboli. More distal bilateral subsegmental pulmonary artery branches are suboptimally opacified. Small distal bilateral pulmonary emboli cannot be excluded. 2. Interval increase in amount of small right pleural effusion. Interval worsening of airspace consolidations in bilateral upper lobes and right lower lobe. Unchanged or slightly worsened right middle lobe infiltrates and interval slight improvement in left lower lobe aeration. Finding is suggestive of worsening bilateral multilobar infiltrates. Continue follow-up until resolution is recommended to rule out underlying neoplastic process. 3. Enlarged mediastinal and hilar lymph nodes slightly progressed compared to prior studies and are likely reactive in nature. 4. Cardiomegaly, no pericardial effusion. Dictated by: Isai Wheat M.D. on 04/27/2025 at 21:51 MDM Narrative Medical decision making narrative: CC: Increased dyspnea Complicating co-morbidities: Discharged from the hospital last week with community-acquired pneumonia on 3 L of oxygen Data collected from: patient, , son Medical records reviewed: Discharge summary from recent hospitalization is reviewed Differential considered: Worsening pneumonia, pulmonary embolism, pneumothorax, congestive heart failure, acute coronary syndrome Exam documented above, pertinent findings include: Appears to feel unwell but he is not in acute distress, able to speak in full sentences, minor scattered wheeze and minor rhonchi mostly in upper lung martinez bilaterally. No JVD no lower extremity edema Lab Test results independently reviewed as above. Pertinent findings: CBC shows leukocytosis with white count at 17.5 has been at 12 on discharge on the . Chronic stable anemia platelets are elevated at 530 Chemistries are notable for minimally elevated AST and ALT similar to recent admission. Appropriate renal function, a slightly low sodium at 130 normal potassium Lipase is unremarkable Procalcitonin is slightly elevated at 0.740 Lactic acid is not elevated Troponin is undetectable BNP is not elevated Independently reviewed EKG: Sinus tachycardia, no acute ischemic changes Imaging studies independently reviewed: CT angiogram: Treatments: Oxygen, IV vancomycin, cefepime Discussion: 80-year-old gentleman discharged from the hospital with community-acquired pneumonia on April 20 with 4 additional days of Levaquin which he has taken. He he has noted over the last couple of days his oxygen requirement has gone from 2-4 L. his cough continues it is not significantly productive. He is not complaining of palpitations or overt chest pain. With the increased hypoxia as he came in recent treatment for community-acquired pneumonia alternative explanations for his hypoxia including PE, congestive heart failure, acute coronary syndrome are all entertained and PE CT studies ordered along with blood work for sepsis. Workup suggests worsening bacterial pneumonia based on elevated white blood cell count, slightly elevated procalcitonin, results of CT scan suggesting increasing bacterial consolidation in mid upper lobes, no evidence of pulmonary embolism pericardial effusion, heart failure or NSTEMI. With the minor scattered wheeze we will add a dose of Solu-Medrol, DuoNeb, we will begin him on antibiotics expanded coverage with a continued/recurrent pneumonia after recent hospitalization. Antibiotics will include vancomycin and cefepime. We will see if Respiratory therapy is able to induce any sort of sputum. With recent admission viral panel was completely unremarkable in his not repeated at this time care is reviewed with hospitalist and patient will be admitted Discharge Plan Departure Patient Disposition: Admitted As Inpatient Clinical Impression: Pneumonia, Acute hypoxic respiratory failure
[2025-04-27 20:27] LABS: Add Manual Diff / Slide Review NO; Basophils Absolute Auto 200 /uL (0-100); Eosinophils Absolute Auto 700 /uL (0-450); Eosinophils Percent Auto 3.7 % (2-4); Hematocrit 34.6 % (41-53); Hemoglobin 11.3 g/dL (13.5-17.5); Lymphocytes Absolute Auto 1900 /uL (1100-4500); Lymphocytes Percent Auto 10.7 % (25-40); Mean Corpuscular HGB Conc 32.7 % (30-36); Mean Corpuscular Hemoglobin 27.8 PG (26-34); Monocytes Absolute Auto 1600 /uL (0-900); Monocytes Percent Auto 9.3 % (3-14); Neutrophils Absolute Auto 13200 /uL (1500-7000); Neutrophils Percent Auto 75.3 % (50-75); Platelet Count 530 X10^3/uL (150-400); Red Blood Cell Count 4.07 X10^6/uL (4.5-5.9); Red Cell Distribution Width 14.7 % (11.6-14.8); White Blood Cell Count 17.5 X10^3/uL (4.5-11.0)
[2025-04-27 20:28] LABS: INR 1.5 (0.9-1.3); Prothrombin Time 16.7 SECONDS (9.4-12.5)
[2025-04-27 20:31] LABS: PTT Partial Thromboplastin Tim 31 SECONDS (25.1-36.5)
[2025-04-27 20:33] LABS: Alanine Aminotransferase 50 IU/L (<50); Albumin 2.9 g/dL (3.5-5.0); Albumin Globulin Ratio 0.9 (1.0-2.8); Alkaline Phosphatase 69 U/L (38-126); Aspartate Aminotransferase 68 IU/L (17-59); Bilirubin Total 0.6 mg/dL (0.2-1.3); Blood Urea Nitrogen 18 mg/dL (9-20); Calcium 8.3 mg/dL (8.4-10.2); Carbon Dioxide 28 mmol/L (22-32); Chloride 96 mmol/L (98-107); Estimated Glomerular Filt Rate > 60 mL/min (>60); Globulin 3.3 g/dL (1.7-4.1); Glucose 213 mg/dL (70-99); HEMOLYSIS < 15 (0-50); Lipase 76 U/L (23-300); Potassium 4.5 mmol/L (3.4-5.1); Sodium 130 mmol/L (137-145); Total Protein 6.2 g/dL (6.3-8.2)
[2025-04-27 20:38] LABS: Lactate (Lactic Acid) 1.9 mmol/L (0.7-2.1)
--- NOTE | 2025-04-27 20:38 | PC.NURSE ---
pt has been taking antibiotics for pneumonia has a hx of bladder CA and is on chemo for it. pt has been on home oxygen since the pneumonia d/t worsening of sob and has been home bound d/t doctor's orders for decreased immunity and increased need for oxygen pt has been doing incentive spirometer at home has an appt with his hem/onc doctor in a week and gets his tx at [facility]. pt states he has been more tired than usual even with using the oxygen. pt is tachypneic but able to talk in complete sentences
[2025-04-27 20:50] LABS: NT-proBNP (BNP-Adult 18+) 371 pg/mL (<450); Troponin I 0.026 ng/mL (0.01-0.034)
[2025-04-27] MEDS: SODIUM CHLORIDE 0.9% 1,000 ML 1000 ML IV (21:44)
--- NOTE | 2025-04-27 23:03 | PM.HP.1 ---
History of Present Illness History of Present Illness Chief complaint: Low oxygen Narrative: 80M with PMH of DM2 with neuropathy, GERD, past h/o bladder cancer discharged from this hospital 04/20/25 for community-acquired pneumonia with 4 days outpatient levofloxacin and new 3L O2 requirement (from baseline room air) presents with worsening dyspnea and hypoxia now requiring 4L oxygen for adequate oxygen saturation. He is not septic with no fever, hypotension but does have SIRS with elevated procalcitonin, leucocytosis, tachycardia, and tachypnea. CTA showed no evidence of PE but did show expanding bilateral pneumonia. He was given vancomycin, cefepime, methylprednisolone, and duonebs in ED. [facility] Medical History Acid reflux Diabetes Social History household members: spouse Meds Home Medications and Allergies Home Medications ?Medication ?Instructions ?Recorded ?Confirmed ?Type gabapentin 400 mg capsule 400 mg PO .HS 04/15/25 04/27/25 History loratadine 10 mg tablet 10 mg PO DAILY 04/15/25 04/27/25 History metformin 500 mg tablet,extended 500 mg PO DAILY 04/15/25 04/27/25 History release 24 hr omeprazole 20 mg capsule,delayed 20 mg PO DAILY 04/15/25 04/27/25 History release albuterol sulfate 90 mcg/actuation 2 puff inhalation Q4H PRN 04/27/25 04/27/25 History aerosol inhaler shortness of breath or wheezing Allergies Allergy/AdvReac Type Severity Reaction Status Date / Time No Known Drug Allergies Allergy Verified 04/15/25 09:20 Review of Systems Review of Systems Narrative: per HPI. Rest of 10-system review negative. Exam Vital Signs (past 8 hours): - 04/27/25 20:14 04/27/25 20:49 04/27/25 21:30 Temperature 99.6 F Pulse Rate 110 H 103 H 101 H Respiratory Rate 40 H 31 H 31 H Blood Pressure 136/61 134/61 139/63 Pulse Oximetry 88 L 93 92 Oxygen Delivery Method Nasal Cannula Nasal Cannula Nasal Cannula Oxygen Flow Rate 3 4 4 Oxygen Delivery Method Nasal Cannula Oxygen Flow Rate 4 Narrative Exam Narrative: Patient was evaluated entirely through 2-way audio/video telemedicine with RN assistance in exam. Physician was not present at beside in person at any time for this evaluation. Consent for telemedicine obviously obtained from patient. Const Other: awake, alert HENMT Other: anicteric sclerae, dry MM Resp Other: frequent coughing. digital stethoscope not working Cardio Other: digital stethoscope not working Skin Other: no rashes or skin tears visible Neuro Other: normal speech Extrem Other: no edema Objective Imaging CT scan - chest: Radiologist's impression: 1. No large central pulmonary emboli. More distal bilateral subsegmental pulmonary artery branches are suboptimally opacified. Small distal bilateral pulmonary emboli cannot be excluded. 2. Interval increase in amount of small right pleural effusion. Interval worsening of airspace consolidations in bilateral upper lobes and right lower lobe. Unchanged or slightly worsened right middle lobe infiltrates and interval slight improvement in left lower lobe aeration. Finding is suggestive of worsening bilateral multilobar infiltrates. Continue follow-up until resolution is recommended to rule out underlying neoplastic process. 3. Enlarged mediastinal and hilar lymph nodes slightly progressed compared to prior studies and are likely reactive in nature. 4. Cardiomegaly, no pericardial effusion. Labs 04/27/25 20:17 04/27/25 20:17 Labs: Laboratory Results - last 24 hr 04/27/25 20:17 WBC 17.5 H RBC 4.07 L Hgb 11.3 L Hct 34.6 L MCV 85.0 MCH 27.8 MCHC 32.7 RDW 14.7 Plt Count 530 H Neut % (Auto) 75.3 H Lymph % (Auto) 10.7 L [place] % (Auto) 9.3 Eos % (Auto) 3.7 Baso % (Auto) 1.0 Neut # (Auto) 46399 H Lymph # (Auto) 1900 [place] # (Auto) 1600 H Eos # (Auto) 700 H Baso # (Auto) 200 H PT 16.7 H INR 1.5 H APTT 31 Sodium 130 L Potassium 4.5 Chloride 96 L Carbon Dioxide 28 BUN 18 Creatinine 0.90 Estimated GFR > 60 BUN/Creatinine Ratio 20.0 Glucose 213 H D Lactate 1.9 Calcium 8.3 L Total Bilirubin 0.6 AST 68 H ALT 50 H Alkaline Phosphatase 69 Troponin I 0.026 NT-Pro-B Natriuret Pep 371 Total Protein 6.2 L Albumin 2.9 L Globulin 3.3 Albumin/Globulin Ratio 0.9 L Lipase 76 Procalcitonin 0.740 H Assessment & Plan Assessment and plan (1) Acute hypoxic respiratory failure: Status: Acute (2) Pneumonia: Qualifiers: Laterality: bilateral Lung location: lower lobe of lung Pneumonia type: due to Pneumococcus Qualified Code(s): J13 - Pneumonia due to Streptococcus pneumoniae Status: Acute Assessment & Plan narrative: 1. Acute recurrent, worsening bilateral community-acquired pneumonia, failed prior antibiotic therapy, with acute hypoxic respiratory failure, with SIRS, POA 2. Acute on chronic hyponatremia, POA 3. Acute thrombocytosis, POA 4. Hypoalbuminemia, POA 5. DM2 with peripheral neuropathy 6. GERD Plan: 1. Admit med-surg, inpatient, telemetry 2. continue empiric vancomycin, cefepime. Failed quinolone treatment 3. O2 to SaO2>92% 4. S/p solu-medrol 5. Duonebs 6. PPI 7. Pulmonary toilet such as chest PT or flutter 8. Diabetic diet, SSI. Hold metformin 9. Daily CMP, CBC, Mg Code: Full DVT prophylaxis: Lovenox Time-Based Coding :: [TOTAL MINUTES] spent with patient and on the chart (including review of chart, obtaining history, exam, reviewing outside data, placing orders, documenting exam and treatment plan, and counseling patient) on [DATE].
[2025-04-27] MEDS: CEFEPIME 2 GM in SODIUM CHLORIDE 0.9% 100 ML IV (23:12)
[2025-04-27] MEDS: methylPREDNISolone 125 MG/2 ML VIAL IV (23:13)
[2025-04-27] MEDS: ALBUTEROL/IPRATROPIUM 3 ML AMPUL INH (23:15)
[2025-04-28] VITALS (10 sets, daily range): BP systolic 127–143; BP diastolic 56–68; PULSE 83–106; RESP 16–24; TEMP 36.3–37.2; O2SAT 92–95
[2025-04-28] MEDS: VANCOMYCIN 2,000 MG/400 ML PIGGYBACK 200 MG IV (00:43)
[2025-04-28] MEDS: GABAPENTIN 400 MG CAPSULE PO ×2 (01:09→21:41)
[2025-04-28 05:39] LABS: Add Manual Diff / Slide Review NO; Basophils Absolute Auto 200 /uL (0-100); Eosinophils Absolute Auto 0 /uL (0-450); Eosinophils Percent Auto 0.2 % (2-4); Hematocrit 33.5 % (41-53); Hemoglobin 11.3 g/dL (13.5-17.5); Lymphocytes Absolute Auto 1000 /uL (1100-4500); Lymphocytes Percent Auto 5.5 % (25-40); Mean Corpuscular HGB Conc 33.6 % (30-36); Mean Corpuscular Hemoglobin 28.5 PG (26-34); Mean Corpuscular Volume 84.7 fL (80-100); Monocytes Absolute Auto 300 /uL (0-900); Monocytes Percent Auto 1.9 % (3-14); Neutrophils Absolute Auto 16400 /uL (1500-7000); Neutrophils Percent Auto 91.4 % (50-75); Platelet Count 487 X10^3/uL (150-400); Red Blood Cell Count 3.96 X10^6/uL (4.5-5.9); Red Cell Distribution Width 14.7 % (11.6-14.8)
[2025-04-28 05:49] LABS: Alanine Aminotransferase 46 IU/L (<50); Albumin 2.8 g/dL (3.5-5.0); Albumin Globulin Ratio 0.8 (1.0-2.8); Alkaline Phosphatase 69 U/L (38-126); Aspartate Aminotransferase 45 IU/L (17-59); BUN Creatinine Ratio 21.1 (6-22); Bilirubin Total 0.5 mg/dL (0.2-1.3); Blood Urea Nitrogen 15 mg/dL (9-20); Calcium 8.3 mg/dL (8.4-10.2); Carbon Dioxide 25 mmol/L (22-32); Chloride 101 mmol/L (98-107); Estimated Glomerular Filt Rate > 60 mL/min (>60); Globulin 3.3 g/dL (1.7-4.1); Glucose 205 mg/dL (70-99); HEMOLYSIS < 15 (0-50); Magnesium 2.3 mg/dL (1.6-2.3); Potassium 4.2 mmol/L (3.4-5.1); Sodium 133 mmol/L (137-145); Total Protein 6.1 g/dL (6.3-8.2)
[2025-04-28 06:13] LABS: Phosphorous 4.3 mg/dL (2.3-3.7)
--- NOTE | 2025-04-28 08:07 | DI.ECHO.S_ITS ---
[facility] : : [address] : [place] : : [id number] : : Phone: [phone] Echocardiogram Report + + :Name: SUSAN RICE Study Date: 04/28/2025 Height: 72 in : :Hospital ReadingLocation: Weight: 170 lb : : Gender: Male BSA: 2.0 m2 : :: 1945 Age: 80 yrs BP: 129/68 mmHg: :Reason For Study: SHORTNESS OF BREATH : :Ordering Physician: LIYA, : :QUINTON TRAYLOR Performed By: Radu Hirsch : :Referring: ELOISE NICKERSON : + + Interpretation Summary Technically difficult study. Patient declined IV contrast. 1) Normal left ventricular size, wall motion, and systolic function (EF 60- 65%). 2) Grossly, normal right ventricular size and function. 3) No significant valvular abnormalities. 4) No prior Echo available for comparison. Procedure: A two-dimensional transthoracic echocardiogram with color flow and Doppler was performed. The study quality was technically difficult. There is no prior echocardiogram noted for this patient. The patient was in normal sinus rhythm during the exam. Left Ventricle: The left ventricle is normal in size. Left ventricular wall thickness is at the upper limits of normal. There is no ventricular septal defect visualized. The ejection fraction is estimated to be 60-65%. Left ventricular systolic function appears normal without focal wall motion abnormalities. Diastolic function could not be accurately assessed due to unobtainable data. Right Ventricle: The right ventricle is not well visualized. The right ventricle grossly appears normal in size with probable normal systolic function. Atria: The left atrium is not well visualized. Right atrium not well visualized. There is no Doppler evidence for an atrial septal defect. Mitral Valve: The mitral valve is grossly normal. There is no mitral regurgitation noted. Aortic Valve: The aortic valve is not well visualized. There is no aortic valve stenosis. No aortic regurgitation is present. Tricuspid Valve: The tricuspid valve is not well visualized. There is a trace or physiologic amount of tricuspid regurgitation. The right ventricular systolic pressure is estimated to be at least 36 mmHg based on an estimated right atrial pressure of 3 mm Hg. Pulmonic Valve: The pulmonic valve is not well visualized. There is no pulmonic valvular regurgitation. Great Vessels: The aortic root is normal size. The dimensions of the ascending aorta are normal. The pulmonary is not well visualized. The IVC is of normal diameter and collapses greater than 50% with a sniff. This suggests a low right atrial pressure of 3 mm Hg. Pericardium/ Pleura There is no pericardial effusion. There is no pleural effusion. MMode/2D Measurements & Calculations LVIDd: 4.6 cm LVOT diam: 2.1 cm LVIDs: 3.1 cm Ao root diam: 3.5 cm FS: 34.0 % asc Aorta Diam: 3.2 cm EPSS: 1.0 cm Ao Arch Diam (Prox Trans): 1.5 cm IVSd: 1.1 cm LVPWd: 1.1 cm LV serrano. diameter/BSA (cm/m^2): 2.3 LV sys. diameter/BSA (cm/m^2): 1.5 IVC diam: 2.0 cm Doppler Measurements & Calculations Ao V2 max: 107.0 cm/sec LVOT Max Laci: 84.9 cm/sec Ao V2 mean: 77.7 cm/sec LV V1 max P.9 mmHg Ao max P.6 mmHg LV V1 VTI: 20.2 cm Ao mean P.6 mmHg INDERJIT(I,D): 3.4 cm2 Ao V2 VTI: 20.1 cm INDERJIT(V,D): 2.7 cm2 sev ratio: 1.0 INDERJIT indexed to BSA (cm^2/m^2): 1.7 MV E max laci: 50.5 cm/sec TR max laci: 286.5 cm/sec MV A max lcai: 76.6 cm/sec TR max P.8 mmHg MV E/A: 0.66 PA V2 max: 104.4 cm/sec Med Peak E' Laci: 8.6 cm/sec PA V2 mean: 80.6 cm/sec E/E' med: 5.9 PA mean P.8 mmHg Lat Peak E' Laci: 8.2 cm/sec PA pr(Accel): 53.3 mmHg E/E' lat: 6.2 E/e' average: 6.0 MV dec time: 0.07 sec SV(LVOT): 67.4 ml Reading Physician:11:12 AM
[2025-04-28] MEDS: INSULIN LISPRO 100 UNIT/ML 3ML VIAL SUBCUT ×3 (08:12→17:03)
[2025-04-28] MEDS: ENOXAPARIN 40 MG/0.4 ML SYRINGE SUBCUT (08:13)
[2025-04-28] MEDS: ALBUTEROL/IPRATROPIUM 3 ML AMPUL INH ×4 (09:10→21:59)
[2025-04-28] MEDS: CEFEPIME 1 GM in SODIUM CHLORIDE 0.9% 100 ML IV ×2 (11:11→23:56)
--- NOTE | 2025-04-28 11:41 | PM.PN.1 ---
Subjective Subjective Interval history: Summary: He was a 79-year-old male with a history of bladder cancer and diabetes admitted with a recurrent pneumonia. WBC 18 today. He feels stable today, worse than from discharge last week but better than last night. Ordered MARKETING SALES SUPERVISOR eval and TTE today for further assessment of hypoxia. Exam Vital Signs (past 8 hours): - 04/28/25 04:00 04/28/25 07:00 04/28/25 08:00 Temperature 97.8 F Pulse Rate 83 100 H Respiratory Rate 22 18 Blood Pressure 129/68 Pulse Oximetry 95 92 Oxygen Delivery Method Heated High Flow Oxygen Flow Rate 7 6 04/28/25 09:11 Temperature Pulse Rate 97 H Respiratory Rate 20 Blood Pressure Pulse Oximetry 94 Oxygen Delivery Method High Flow Nasal Cannula Oxygen Flow Rate 6 Oxygen Delivery Method High Flow Nasal Cannula Oxygen Flow Rate 6 Narrative Exam Narrative: NAD, alert and oriented. Fluent speech. Lungs are with diffuse R crackles inferior > superior, normal rate and effort. Heart is regular, no murmur gallop or rub. Abdomen is soft, non distended. Extremities are free of edema. Objective Labs 04/28/25 05:17 04/28/25 05:17 Labs: Laboratory Results - last 24 hr 04/27/25 04/28/25 20:17 05:17 WBC 17.5 H 18.0 H RBC 4.07 L 3.96 L Hgb 11.3 L 11.3 L Hct 34.6 L 33.5 L MCV 85.0 84.7 MCH 27.8 28.5 MCHC 32.7 33.6 RDW 14.7 14.7 Plt Count 530 H 487 H Neut % (Auto) 75.3 H 91.4 H Lymph % (Auto) 10.7 L 5.5 L [place] % (Auto) 9.3 1.9 L Eos % (Auto) 3.7 0.2 L Baso % (Auto) 1.0 1.0 Neut # (Auto) 07527 H 81585 H Lymph # (Auto) 1900 1000 L [place] # (Auto) 1600 H 300 Eos # (Auto) 700 H 0 Baso # (Auto) 200 H 200 H PT 16.7 H INR 1.5 H APTT 31 Sodium 130 L 133 L Potassium 4.5 4.2 Chloride 96 L 101 Carbon Dioxide 28 25 BUN 18 15 Creatinine 0.90 0.71 Estimated GFR > 60 > 60 BUN/Creatinine Ratio 20.0 21.1 Glucose 213 H D 205 H Lactate 1.9 Calcium 8.3 L 8.3 L Phosphorus 4.3 H Magnesium 2.3 Total Bilirubin 0.6 0.5 AST 68 H 45 ALT 50 H 46 Alkaline Phosphatase 69 69 Troponin I 0.026 NT-Pro-B Natriuret Pep 371 Total Protein 6.2 L 6.1 L Albumin 2.9 L 2.8 L Globulin 3.3 3.3 Albumin/Globulin Ratio 0.9 L 0.8 L Lipase 76 Procalcitonin 0.740 H [facility] Medical History Acid reflux Diabetes Social History household members: spouse Assessment & Plan Assessment & Plan narrative: 1. Community-acquired pneumonia, recurrent, present on admission and active. 2. Acute hypoxic respiratory failure, present on admission and active. 3. Bladder cancer, stable. 4. Diabetes mellitus 2, stable. Plan: -continue cefepime and vancomycin while awaiting cultures (blood and sputum) -TTE and MARKETING SALES SUPERVISOR evaluation for further evaluation of hypoxia, possibly due to CHF or chronic aspiration. -Procalcitonin stable 0.740 from last admission. -CTA on re-admit negative for PE, shows multilobar infiltrates and small effusion. Does not appear large enough of CT imaging for thoracentesis. -Goal O2 89-96% while on supplemental therapy. Dispo: Inpatient. Can possibly discharge home in 2-3 days pending his clinical status and oxygenation. If able to wean from O2 he can discharge home again depending on the above findings. He is followed by Priya Mendez physician accounting manager assistant controller at [facility]. Full resuscitation, confirmed today. is proxy decision maker. Time-Based Coding :: [TOTAL MINUTES] spent with patient and on the chart (including review of chart, obtaining history, exam, reviewing outside data, placing orders, documenting exam and treatment plan, and counseling patient) on [DATE].
[2025-04-28] MEDS: VANCOMYCIN 1,000 MG in SODIUM CHLORIDE 0.9% 250 ML 250 MG IV ×2 (11:45→20:20)
--- NOTE | 2025-04-28 12:49 | CM.DANOTE ---
Initial DCP Assessment Visit Note Reviewed EMR and team rounds for pt's medical status and updates. Pt was just discharged on 04/20 after being hospitalized for PNA/hypoxic respiratory syndrome, discharged home on 3LO2. He lives independently with is spouse in their own home in [place]. Spouse will transport at discharge. Payor: Paige Cuadra No PCP listed Pt is a 80 year-old M with a hx of bladder cancer and diabetes, he presented again to the ED last evening with c/o worsening SOB, and his O2 needs at home have increased from 2L to 4L without improvement. He was found to be satting in the low 80's. ED imaging showed worsening bacterial pneumonia, despite having finished his course of oral antibiotics. He continues to be hypoxic, even with increased O2. Plan was made to admit for further respiratory tx and IV ABO's. DCP will continue to monitor for any evolving, final d/c assistance/resource needs. Discharge Planning/Care Management Advanced directive, confirm from FAMILY Start: 04/27/25 23:29 Freq: Q24H Status: Active Protocol: Document 04/27/25 23:29 MW (Rec: 04/27/25 23:31 MW [id number]) Advance Directive, confirm on record Time 23:30 Person contacted family Copy received No CM Discharge Assessment Start: 04/27/25 23:06 Freq: Status: Active Protocol: Document 04/28/25 12:47 DPL (Rec: 04/28/25 12:49 DPL [id number]) Discharge Planning Assessment Assigned Discharge JACKIE Parnell Energy Derivatives Trader Advance Directives? Yes Advance Directives No on File History Provided By Patient,Medical Record Has Patient been Yes admitted in last 30 days? Comment 04/15-04/20/25 same concerns Prior Living House Arrangements Household Members spouse Type of Drives own vehicle transporation used prior to admit Independent with ADL Yes 's Is patient alert and Yes oriented? Caregiver for No Another Community Services Oxygen Therapy used prior to admission: Comment No identified home d/c needs identified at this time. Barriers to No Discharge Discharge Plan Home Transportation Family, pending improvement Arrangement Referrals Initiated None needed Whiteboard Updated Yes in Patient Room with name and ext. # of Alarm Operator Review Status In Process Please Provide Date 04/28/25 Initial DC Assessment Was Performed
--- NOTE | 2025-04-28 13:58 | ST.IPCSEOM ---
Visit Care Team Role Provider Type Katie Lin MD Emergency Provider Physician Referring Provider Specialty: Emergency Medicine Address: [address] [place] [address], [id number] Email: Gregg Colunga MD Admit Provider Physician Attending Provider Specialty: Internal Medicine Address: [address] [place] [address], [id number] Fax: Email: [email or web address] Current Diagnoses Pneumonia due to Streptococcus pneumoniae (04/27/25) Acute respiratory failure with hypoxia (04/27/25) Past Medical History (Last Reviewed 04/27/25 @ 23:07 by Gregg Colunga MD) Acid reflux (Medical) Diabetes (Medical) Speech-Language Pathology Swallow Evaluation INSTRUCTIONAL TECHNOLOGY FACILITATOR Clinical Swallow Evaluation Start: 04/28/25 13:32 Freq: Status: Active Protocol: Document 04/28/25 13:33 SS (Rec: 04/28/25 13:58 SS Desktop) Clinical Swallow Evaluation Session Time Visit Start Time 12:35 Visit Stop Time 12:55 Total Visit Minutes [address] Zeeshan Mejia Reason for Referral Recurrent PNA Setting Assessment Location Acute Care Visit Type Note Type Initial evaluation Patient Information Identification Type Name History Per H&P: 80M with PMH of DM2 with neuropathy, GERD, past h/o bladder cancer discharged from this hospital for community-acquired pneumonia with 4 days outpatient levofloxacin and new 3L O2 requirement (from baseline room air) presents with worsening dyspnea and hypoxia now requiring 4L oxygen for adequate oxygen saturation. He is not septic with no fever, hypotension but does have SIRS with elevated procalcitonin, leucocytosis, tachycardia, and tachypnea. CTA showed no evidence of PE but did show expanding bilateral pneumonia. He was given vancomycin, cefepime, methylprednisolone, and duonebs in ED. Chest CT scan small right pleural effusion, airspace consolidations in bilateral upper lobes and right lower lobe, right middle lobe infiltrates, and worsening bilateral multilobar infiltrates. Clinical swallowing evaluation completed to assess swallow function, identify aspiration risk, and determine the need for further instrumental dysphagia testing. Subjective Chart reviewed prior to INSTRUCTIONAL TECHNOLOGY FACILITATOR entry. pt was sitting Observations upright in armchair, finishing his lunch. His daughter, Darian, was at bedside. Pt reported he typically eats a regular food diet which his daughter agreed with. Pt and family denied any increase in swallowing difficulty or hx of dysphagia. Pt reported occasional dry cough at baseline with HFNC in place, though expressing cough has been improving. Reported by Patient/Caregiver Other Symptoms History of aspiration or pneumonia Current Diet Regular (IDDSI 7) Baseline Feeding Independent in self-feeding Method The IDDSI Framework Protocol: IDDSI.1 Objective Assessment Mental Status Alert,Responsive,Cooperative Oral Integrity WFL Dentition Upper dentures/partials,Lower dentures/partials Lip Function Within normal limits Tongue Function Within normal limits Jaw Function Within normal limits Hard/Soft Palate Within normal limits Function Respiratory Within normal limits Sufficiency Food and Liquid Trials Position During Upright (90 degrees) Assessment Liquids Trialed Thin (IDDSI 0) Solid Trials Purred (IDDSI 4),Soft & Bite-sized (IDDSI 6),Regular ( IDDSI 7) Administration Type Cup single sip,Cup consecutive sips,Straw,Self-feeding Oral Impairment Within normal limits Oral Phase Comments Adequate bolus containment and acceptance. Timely and organized mastication. No anterior labial loss of food/ liquid observed. No oral residue was observed. Pharyngeal Within normal limits Impairment Pharyngeal Phase Pharyngeal phase cannot be objectively assessed at Comments bedside though subjectively appeared within normal limits. Average of 1 swallow per bolus. Pt did not demonstrate overt s/sx of aspiration with PO trials. He denied globus sensation. Pt was able to feed himself without difficulty. Fatigue/Endurance Endurance WNL [place] Swallow Yes Protocol Results The [place] Swallow Protocol is an evidence-based swallow screening protocol to determine aspiration risk. This tool has been validated across a number of different patient diagnoses and in a number of clinical settings. This is the only screening instrument that both identifies aspiration risk and, when passed, is able to recommend specific oral diets without the need for further instrumental dysphagia testing. Based upon research by Drs. Braydon Zuniga and Samantha Alegria, this is a reliable and validated swallow screening protocol. Cognitive Screen: PASS Results with 3oz water test: PASS Results with cracker: PASS The IDDSI Framework Protocol: IDDSI.1 Findings Swallowing Function Within normal limits Severity of Swallow Within normal limits Impairment Comment Currently, pt does not present with indications of oropharyngeal dysphagia. Oral phase was largely timely. Pharyngeal phase cannot be objectively assessed at bedside though subjectively appeared timely and coordinated. Pt passed the 3 ounce water test. No overt s/sx of aspiration observed with all PO trials. Recommend pt continue baseline diet of regular textures (self-selecting softer foods as needed) and thin liquids with adherence to baseline aspiration precautions below. If recurrent pneumonia continues, pt may pursue Modified Barium Swallow Study with guidance from PCP to rule out silent aspiration potentially contributing to PNA. Will follow up if change in overall status. Impact on Safety and Risk for inadequate nutrition/hydration Functioning Comments Pt reported reduced appetite 2/2 to history of cancer. Recommendations Instrumental No Assessment Swallowing Treatment No Recommended Solids Regular (IDDSI 7) Recommended Liquids Thin (IDDSI 0) Safety Precautions/ Remain upright (90 degrees) during all oral intake, Swallowing Upright position at least 30 minutes after meals,Small Recommendations bites and sips when eating,Slow rate; swallow between bites Medication As Tolerated Recommendations Discharge Home Recommendations Referrals Recommended Dietary Referrals Education Patient/Caregiver Described results of evaluation,Patient expressed Education understanding of evaluation,Patient expressed agreement with goals & treatment plans,Family/caregivers expressed understanding of evaluation,Family/caregivers expressed agreement with goals & treatment plans
--- NOTE | 2025-04-28 17:25 | DIET.CONS ---
Dietary Consultation Note Admission Date: 04/27/2025 23:03 Assessment: 80 y M admitted for pneumonia. Diet consulted for decreased PO intake. Met with pt in room this afternoon. Pt reports continued decrease appetite. Smell of cooked food causes loss of appetite, taste has changed- food taste rotten. Tolerating ONS 1-2x/d. Ht: 182.88 cm Wt: 84 kg BMI: 23.0 UBW: per pt 170 lb at home scale (76.8 kg) 1-2 months ago (-7.5% weight loss in 1-2 months, severe) Last BM: 04/27/25 (04/27/25 23:22) MNA: 9 Femi Score: 20 Diet: 04/28/25 Breakfast Carbohydrate Consistent Diet Diet Modifications: Carbohydrate level: Medium (3 CHO) Reflex DM orders: No Nutrition Percent Meal Consumed 50% 04/28/25 08:00 Labs: RBC 3.96 X10^6/uL (4.5-5.9) L 04/28/25 05:17 Hgb 11.3 g/dL (13.5-17.5) L 04/28/25 05:17 Hct 33.5 % (41-53) L 04/28/25 05:17 Creatinine 0.71 mg/dL (0.66-1.25) 04/28/25 05:17 Lactate 1.9 mmol/L (0.7-2.1) 04/27/25 20:17 NT-Pro-B Natriuret Pep 371 pg/mL (<450) 04/27/25 20:17 Nutrition Diagnosis: Unintentional weight loss r/t taste changes and decreased appetite aeb -7.5% weight loss in 3 months, severe Interventions: -Discussed tips for taste changes including use of citrus, staying hydrated/ice chips, and eating cold foods or keeping away from kitchen during cooking to avoid smell -ONS max 1-2x/day vanilla Monitoring/Evaluations: PO intakes Electronically Signed by: Nancy Phelan 04/28/25 17:[address] [id number]
[2025-04-28] MEDS: BENZOCAINE/MENTHOL 1 LOZ PKT 1 EACH PO (21:42)
[2025-04-29] VITALS (9 sets, daily range): BP systolic 126–148; BP diastolic 59–88; PULSE 84–107; RESP 17–22; TEMP 36.1–37; O2SAT 91–97
[2025-04-29] MEDS: VANCOMYCIN 1,000 MG in SODIUM CHLORIDE 0.9% 250 ML 250 MG IV ×3 (03:22→20:58)
[2025-04-29] MEDS: TRAZODONE 50 MG TABLET PO (03:22)
[2025-04-29 04:52] LABS: Appearance Urine UA CLEAR; Bilirubin Urine UA NEGATIVE (NEGATIVE); Color Urine UA YELLOW; Glucose Urine UA TRACE g/dL (Negative); Ketones Urine UA NEGATIVE (NEGATIVE); Leukocyte Esterase Urine UA NEGATIVE (NEGATIVE); Nitrite Urine UA NEGATIVE (Negative); Occult Blood Urine UA NEGATIVE (Negative); Protein Urine UA NEGATIVE (Negative); Urine Volume 10mL (spun); Urobilinogen Urine UA 0.2 E.U./dL (0.2)
[2025-04-29 04:56] LABS: Bacteria Urine Occasional (0-1); RBC Urine None Seen (0-5/HPF); Squamous Epithelial Cell Urine 0-1 /HPF (0-5/HPF); WBC Urine None Seen (0-5/HPF)
[2025-04-29 04:57] LABS: Culture Indicated Urine Cult Not Indicated
[2025-04-29] MEDS: INSULIN LISPRO 100 UNIT/ML 3ML VIAL SUBCUT (08:02)
[2025-04-29] MEDS: ENOXAPARIN 40 MG/0.4 ML SYRINGE SUBCUT (08:02)
[2025-04-29] MEDS: LORATADINE 10 MG TABLET PO (08:02)
--- NOTE | 2025-04-29 09:09 | P.PN_ITS ---
Subjective Subjective Date Patient Seen: 04/29/25 Interval history: Narrative: 80M with PMH of DM2 with neuropathy, GERD, past h/o bladder cancer discharged from this hospital 04/20/25 for community-acquired pneumonia with 4 days outpatient levofloxacin and new 3L O2 requirement (from baseline room air) presents with worsening dyspnea and hypoxia now requiring 4L oxygen for adequate oxygen saturation. He is not septic with no fever, hypotension but does have SIRS with elevated procalcitonin, leucocytosis, tachycardia, and tachypnea. CTA showed no evidence of PE but did show expanding bilateral pneumonia. He was given vancomycin, cefepime, methylprednisolone, and duonebs in ED. Ordered GROMMET MACHINE OPERATOR eval and TTE today for further assessment of hypoxia. 04/29: The patient reports feeling better, with improved shortness of breath. He is still remains weak and dyspneic with mild exertion. Exam Vital Signs (past 8 hours): - 04/29/25 04:00 04/29/25 07:51 04/29/25 08:00 Temperature 97.3 F L 97.0 F L Pulse Rate 106 H 86 Respiratory Rate 19 17 Blood Pressure 127/59 L 138/65 Pulse Oximetry 94 97 Oxygen Delivery Method Nasal Cannula Oxygen Flow Rate 3 6 Fraction of Inspired Oxygen 32 SaO2/FiO2 Ratio 290 Oxygen Delivery Method Nasal Cannula Oxygen Flow Rate 6 Narrative Exam Narrative: NAD, alert and oriented. Fluent speech. Lungs are with diffuse R crackles inferior > superior, normal rate and effort. Heart is regular, no murmur gallop or rub. Abdomen is soft, non distended. Extremities are free of edema. Objective Imaging *: Radiologist's impression: Chest xray 04/11/2025: More prominent bilateral areas of consolidation as described, likely due to evolving multi lobar pneumonia. Chest CTA 04/15/2025: 1. No pulmonary embolus. No thoracic aortic aneurysm or gross dissection. 2. Extensive bilateral multilobar infiltrates most notably in right lower lobe. No pneumothorax. Small right greater than left bilateral pleural effusion. 3. Enlarged mediastinal and lung right hilar lymph nodes likely reactive in nature. Cardiomegaly, no pericardial effusion. Chest xray 04/19/2025: Similar multifocal airspace opacities. Chest CTA 04/27/2025: 1. No large central pulmonary emboli. More distal bilateral subsegmental pulmonary artery branches are suboptimally opacified. Small distal bilateral pulmonary emboli cannot be excluded. 2. Interval increase in amount of small right pleural effusion. Interval worsening of airspace consolidations in bilateral upper lobes and right lower lobe. Unchanged or slightly worsened right middle lobe infiltrates and interval slight improvement in left lower lobe aeration. Finding is suggestive of worsening bilateral multilobar infiltrates. Continue follow-up until resolution is recommended to rule out underlying neoplastic process. 3. Enlarged mediastinal and hilar lymph nodes slightly progressed compared to prior studies and are likely reactive in nature. 4. Cardiomegaly, no pericardial effusion. Echocardiogram 04/28/2025: Technically difficult study. Patient declined IV contrast. 1) Normal left ventricular size, wall motion, and systolic function (EF 60- 65%). 2) Grossly, normal right ventricular size and function. 3) No significant valvular abnormalities. 4) No prior Echo available for comparison. Labs 04/28/25 05:17 04/28/25 05:17 Labs: Laboratory Results - last 24 hr 04/29/25 03:40 Urine Color Yellow Urine Appearance Clear Urine pH 6.0 Ur Specific Distant 1.010 Urine Protein Negative Urine Glucose (UA) Trace H Urine Ketones Negative Urine Occult Blood Negative Urine Nitrate Negative Urine Bilirubin Negative Urine Urobilinogen 0.2 Ur Leukocyte Esterase Negative Urine RBC None seen Urine WBC None seen Ur Squamous Epith Cells 0-1 /hpf Urine Bacteria Occasional (0-1) Ur Culture Indicated? Cult not indicated Vol Urine Centrifuged 10ml (spun) [facility] Medical History Acid reflux Diabetes Social History household members: spouse Assessment & Plan Assessment & Plan narrative: 1. Community-acquired pneumonia, recurrent, present on admission and active. Consider possible Keytruda induced pneumonitis (incidence 3-4%). 2. Acute hypoxic respiratory failure, present on admission and active. 3. Bladder cancer, stable. 4. Diabetes mellitus 2, stable. Plan: -continue cefepime and vancomycin while awaiting cultures (blood and sputum), negative to date -fungal or other opportunistic infection appears less likely given normal white blood count, afebrile with stable to improving course. -remain off Keytruda at this point, consider possible Keytruda induced pneumonitis. Message left with oncologist Dr. Hansen -TTE and GROMMET MACHINE OPERATOR evaluation for further evaluation of hypoxia, possibly due to CHF or chronic aspiration. -Procalcitonin stable 0.740 from last admission. -CTA on re-admit negative for PE, shows multilobar infiltrates and small effusion. Does not appear large enough of CT imaging for thoracentesis. -Goal O2 89-96% while on supplemental therapy. Dispo: Inpatient. Can possibly discharge home in 2-3 days pending his clinical status and oxygenation. If able to wean from O2 he can discharge home again depending on the above findings. He is followed by Priya Mendez physician cataloging assistant at [facility] and Dr. Ismael Hansen. Full resuscitation. is proxy decision maker. PROFEE Shop Tailor Apprentice Document charge(s): No Charge Codes Subsequent inpatient/observation care: [id number]
[2025-04-29] MEDS: CEFEPIME 1 GM in SODIUM CHLORIDE 0.9% 100 ML IV ×2 (10:04→22:15)
[2025-04-29] MEDS: VANCOMYCIN TROUGH 1 REQUEST MISC (12:14)
--- NOTE | 2025-04-29 12:19 | DIET.PN1 ---
Dietary Progress Note Assessment: RD f/u Met with pt in room. Reports tolerating protein supplements and eating most of his cold gasca salad yesterday. Trying hot chicken stirfry for lunch. Discussed cold dinner options if the smell of the hot food causes appetite loss like it has been at home. Will continue with protein supplement 1-2x/day to support PO intakes and monitoring BG. Ht: 182.88 cm Wt: 84 kg BMI: 23.0 Last BM: 04/29/25 (04/29/25 11:11) MNA: 9 Femi Score: 22 Diet: 04/28/25 Breakfast Carbohydrate Consistent Diet Diet Modifications: Carbohydrate level: Medium (3 CHO) Reflex DM orders: No Nutrition Percent Meal Consumed 50% 04/28/25 18:00 Percent Meal Consumed 50% 04/28/25 08:00 Labs: RBC 3.96 X10^6/uL (4.5-5.9) L 04/28/25 05:17 Hgb 11.3 g/dL (13.5-17.5) L 04/28/25 05:17 Hct 33.5 % (41-53) L 04/28/25 05:17 Creatinine 0.71 mg/dL (0.66-1.25) 04/28/25 05:17 Lactate 1.9 mmol/L (0.7-2.1) 04/27/25 20:17 NT-Pro-B Natriuret Pep 371 pg/mL (<450) 04/27/25 20:17 Electronically Signed by: Nancy Phelan 04/29/25 12:19 Clinical Dietitian [address] [address]
[2025-04-29 12:38] LABS: Vancomycin Trough 14.6 ug/mL (10-20)
--- NOTE | 2025-04-29 13:20 | CM.DPNOTE ---
DCP Continued: Reviewed EMR and team rounds for pt?s medical status. Per hospitalist, it is hoped that pt can continue to be monitored in Acute Care until back at baseline O2. Per hospitalist, echocardiogram is clear. Per CRIMINAL PROFILER, patient passed swallow study and has no indications for dysphasia. No discharge needs identified at this time, possible home health referral upon final recommendation. Plan: Anticipating discharge home with spouse on Friday, 05/02 or when completely medically cleared. CM Team will continue to follow for coordination of discharge plans. NASRIN Hernández
[2025-04-29] MEDS: ALBUTEROL/IPRATROPIUM 3 ML AMPUL INH (19:24)
[2025-04-29] MEDS: GABAPENTIN 400 MG CAPSULE PO (20:57)
[2025-04-30] VITALS (8 sets, daily range): BP systolic 132–149; BP diastolic 59–69; PULSE 95–106; RESP 17–22; TEMP 36.7–37.5; O2SAT 89–95
[2025-04-30] MEDS: VANCOMYCIN 1,000 MG in SODIUM CHLORIDE 0.9% 250 ML 250 MG IV ×3 (04:23→20:33)
[2025-04-30 06:50] LABS: Add Manual Diff / Slide Review NO; Basophils Absolute Auto 100 /uL (0-100); Basophils Percent Auto 0.7 % (0-2); Eosinophils Absolute Auto 300 /uL (0-450); Eosinophils Percent Auto 1.6 % (2-4); Hematocrit 32.4 % (41-53); Hemoglobin 10.8 g/dL (13.5-17.5); Lymphocytes Absolute Auto 1600 /uL (1100-4500); Lymphocytes Percent Auto 8.9 % (25-40); Mean Corpuscular HGB Conc 33.3 % (30-36); Mean Corpuscular Hemoglobin 27.8 PG (26-34); Mean Corpuscular Volume 83.4 fL (80-100); Monocytes Absolute Auto 1500 /uL (0-900); Monocytes Percent Auto 8.6 % (3-14); Neutrophils Absolute Auto 14100 /uL (1500-7000); Neutrophils Percent Auto 80.2 % (50-75); Platelet Count 528 X10^3/uL (150-400); Red Blood Cell Count 3.89 X10^6/uL (4.5-5.9); Red Cell Distribution Width 14.5 % (11.6-14.8); White Blood Cell Count 17.6 X10^3/uL (4.5-11.0)
[2025-04-30 07:00] LABS: BUN Creatinine Ratio 28.8 (6-22); Blood Urea Nitrogen 19 mg/dL (9-20); Carbon Dioxide 30 mmol/L (22-32); Chloride 100 mmol/L (98-107); Estimated Glomerular Filt Rate > 60 mL/min (>60); Glucose 102 mg/dL (70-99); HEMOLYSIS < 15 (0-50); Potassium 4.1 mmol/L (3.4-5.1); Sodium 135 mmol/L (137-145)
[2025-04-30] MEDS: ENOXAPARIN 40 MG/0.4 ML SYRINGE SUBCUT (08:44)
[2025-04-30] MEDS: LORATADINE 10 MG TABLET PO (08:44)
[2025-04-30] MEDS: ALBUTEROL/IPRATROPIUM 3 ML AMPUL INH ×2 (09:19→19:55)
[2025-04-30] MEDS: CEFEPIME 1 GM in SODIUM CHLORIDE 0.9% 100 ML IV ×2 (10:18→22:30)
--- NOTE | 2025-04-30 14:09 | PM.PN.1 ---
Subjective Subjective Interval history: 80-year-old male with underlying diabetes with peripheral neuropathy, GERD, and history of bladder cancer recently admitted with community-acquired pneumonia and discharged on April 20 on Levaquin and supplemental oxygen at 3 liters/minute via nasal cannula who was readmitted with increasing bilateral pneumonia. He was placed on IV cefepime and vancomycin. CT showed increasing infiltrates as well as increasing lymphadenopathy. Since admission he did undergo an echocardiogram which was reasonably normal. He states he was feeling better yesterday than he is today. He is more fatigued today. He is eating well. Reports his sputum is now clear. He is getting ready to take a shower. Speech therapy did assess him and did not find any evidence of aspiration. He states he is typically much more active than he has been here. Exam Vital Signs (past 8 hours): - 04/30/25 07:48 04/30/25 08:00 04/30/25 09:19 Temperature 98.0 F Pulse Rate 104 H 103 H Respiratory Rate 17 22 Blood Pressure 145/67 H Pulse Oximetry 92 94 Oxygen Delivery Method Nasal Cannula Nasal Cannula Oxygen Flow Rate 3 2 04/30/25 12:00 Temperature 98.6 F Pulse Rate 100 H Respiratory Rate 17 Blood Pressure 132/59 L Pulse Oximetry 92 Oxygen Delivery Method Oxygen Flow Rate 4 Fraction of Inspired Oxygen 24 SaO2/FiO2 Ratio 375 Oxygen Delivery Method Nasal Cannula Oxygen Flow Rate 4 Narrative Exam Narrative: GEN: Pleasant elderly male, Alert and oriented x 3, NAD HEENT:NC, Face symmetric CHEST: Respiratory excursions symmetric, coarse and diminished but CTAB CV: RRR, no M/R/G ABD: Soft, NT/ND, BT present in all 4 quadrants, no organomegaly or masses EXTR: warm, well perfused, no C/C/1+ foot and ankle edema SKIN: warm and dry, no rash NEURO: Alert and oriented x 3, nonfocal Objective Labs 04/30/25 05:30 04/30/25 05:30 Labs: Laboratory Results - last 24 hr 04/30/25 05:30 WBC 17.6 H RBC 3.89 L Hgb 10.8 L Hct 32.4 L MCV 83.4 MCH 27.8 MCHC 33.3 RDW 14.5 Plt Count 528 H Neut % (Auto) 80.2 H Lymph % (Auto) 8.9 L [place] % (Auto) 8.6 Eos % (Auto) 1.6 L Baso % (Auto) 0.7 Neut # (Auto) 35306 H Lymph # (Auto) 1600 [place] # (Auto) 1500 H Eos # (Auto) 300 Baso # (Auto) 100 Sodium 135 L Potassium 4.1 Chloride 100 Carbon Dioxide 30 BUN 19 Creatinine 0.66 Estimated GFR > 60 BUN/Creatinine Ratio 28.8 H Glucose 102 H D Calcium 8.0 L PFS Medical History Acid reflux Diabetes Social History household members: spouse Assessment & Plan Assessment & Plan narrative: 1. Community-acquired pneumonia Failed outpatient treatment. Possible component of immunotherapy induced pneumonitis. Patient continues on cefepime and vancomycin. He is medically improving. White blood cell count is 17.6, is not significantly changed from 2 days ago when it was 18.0. Blood cultures are negative to date. Sputum cultures thus far growing light yeast and Gram-negative bacilli. Will send a MRSA culture. 2. Acute hypoxic respiratory failure He is currently on 2-3 L of oxygen via nasal cannula. Will continue to monitor. 3. Diabetes mellitus with peripheral neuropathy Blood sugars have been reasonably well controlled between 102 and 132. 4. Bladder cancer He has been on Keytruda on an outpatient basis. This has been held. Code status Full Prophylaxis Continue Lovenox Disposition Home when clinically improved Time-Based Coding :: [TOTAL MINUTES] spent with patient and on the chart (including review of chart, obtaining history, exam, reviewing outside data, placing orders, documenting exam and treatment plan, and counseling patient) on [DATE].
[2025-04-30 16:52] LABS: MRSA (Nasal) PCR NOT DETECTED (Not Detect)
[2025-04-30] MEDS: BENZOCAINE/MENTHOL 1 LOZ PKT 1 EACH PO ×2 (19:44→21:40)
[2025-04-30] MEDS: GABAPENTIN 400 MG CAPSULE PO (20:33)
[2025-04-30] MEDS: ACETAMINOPHEN 325 MG TABLET 650 MG PO (20:45)
[2025-04-30] MEDS: methylPREDNISolone 125 MG/2 ML VIAL 60 MG IV (20:45)
[2025-05-01 00:07] VITALS: PULSE 80; O2SAT 95
[2025-05-01] MEDS: VANCOMYCIN 1,000 MG in SODIUM CHLORIDE 0.9% 250 ML 250 MG IV ×2 (03:14→12:36)
[2025-05-01] MEDS: methylPREDNISolone 125 MG/2 ML VIAL 60 MG IV ×3 (04:26→20:03)
[2025-05-01 05:28] LABS: Add Manual Diff / Slide Review NO; Basophils Absolute Auto 100 /uL (0-100); Basophils Percent Auto 0.5 % (0-2); Eosinophils Absolute Auto 0 /uL (0-450); Eosinophils Percent Auto 0.1 % (2-4); Hematocrit 33.4 % (41-53); Lymphocytes Absolute Auto 1000 /uL (1100-4500); Lymphocytes Percent Auto 7.8 % (25-40); Mean Corpuscular HGB Conc 32.7 % (30-36); Mean Corpuscular Hemoglobin 27.4 PG (26-34); Mean Corpuscular Volume 83.6 fL (80-100); Monocytes Absolute Auto 300 /uL (0-900); Monocytes Percent Auto 2.1 % (3-14); Neutrophils Absolute Auto 12000 /uL (1500-7000); Neutrophils Percent Auto 89.5 % (50-75); Platelet Count 512 X10^3/uL (150-400); Red Cell Distribution Width 14.5 % (11.6-14.8); White Blood Cell Count 13.4 X10^3/uL (4.5-11.0)
[2025-05-01 05:36] LABS: BUN Creatinine Ratio 25.4 (6-22); Blood Urea Nitrogen 16 mg/dL (9-20); Calcium 8.1 mg/dL (8.4-10.2); Carbon Dioxide 31 mmol/L (22-32); Chloride 101 mmol/L (98-107); Estimated Glomerular Filt Rate > 60 mL/min (>60); Glucose 184 mg/dL (70-99); HEMOLYSIS < 15 (0-50); Potassium 4.2 mmol/L (3.4-5.1); Sodium 135 mmol/L (137-145)
--- NOTE | 2025-05-01 06:41 | PC.NURSE ---
printed circuit board preassembler: At start of shift, patient stated he was feeling short of breath. SpO2 87% on 3LNC. Fine crackles heard in bilateral bases. Titrated O2 up to 6LNC, SpO2 ranging between 90-95% overnight. Patient's family requesting IV Solumedrol, stating it worked well for him in the past. Notified MD Junior, ordered & given. Patient stated he felt much better afterwards and appears comfortable. Encouraging patient to use IS, patient has a productive cough. Ambulating SBA in the room. IV abx infused as ordered. Oriented to call-light, plan of care ongoing.
[2025-05-01 07:00] VITALS: BP 150/75; PULSE 99; RESP 18; TEMP 36.6; O2SAT 91
[2025-05-01] MEDS: ALBUTEROL/IPRATROPIUM 3 ML AMPUL INH ×3 (07:48→19:24)
[2025-05-01] MEDS: ENOXAPARIN 40 MG/0.4 ML SYRINGE SUBCUT (08:46)
[2025-05-01] MEDS: LORATADINE 10 MG TABLET PO (08:46)
[2025-05-01] MEDS: INSULIN LISPRO 100 UNIT/ML 3ML VIAL SUBCUT ×4 (08:46→21:47)
[2025-05-01] MEDS: CEFEPIME 1 GM in SODIUM CHLORIDE 0.9% 100 ML IV ×2 (11:41→23:11)
--- NOTE | 2025-05-01 13:14 | CM.DPC ---
DCP Cont: Per MD, pt felt poorly yesterday and was increased to 6LO2 overnight but remains SBA in room and not yet medically stable to discharge. Ongoing IV abx for tx of pneumonia. JACKIE Pedro
[2025-05-01 15:44] VITALS: PULSE 95; RESP 20; O2SAT 90
[2025-05-01 19:28] VITALS: PULSE 105; RESP 20; O2SAT 93
[2025-05-01 20:00] VITALS: BP 146/60; PULSE 104; TEMP 36.6; O2SAT 89
[2025-05-01] MEDS: GABAPENTIN 400 MG CAPSULE PO (20:03)
[2025-05-01] MEDS: ACETAMINOPHEN 325 MG TABLET 650 MG PO (20:04)
--- NOTE | 2025-05-01 20:12 | P.PN_ITS ---
Subjective Subjective Interval history: 80-year-old male with underlying diabetes with peripheral neuropathy, GERD, and history of bladder cancer recently admitted with community-acquired pneumonia and discharged on April 20 on Levaquin and supplemental oxygen at 3 liters/minute via nasal cannula who was readmitted with increasing bilateral pneumonia. He was placed on IV cefepime and vancomycin. CT showed increasing infiltrates as well as increasing lymphadenopathy. Since admission he did undergo an echocardiogram which was reasonably normal. Patient was feeling less well yesterday than he was the day prior. He was more fatigued. However, he noted he was eating well and his sputum was clear. Evidently, last night he was placed back on IV steroids. Today, he reports he is feeling much better. He has showered, has been up to the chair for most of the day. He believes the steroids have made an impactful difference. Exam Vital Signs (past 8 hours): - 05/01/25 15:44 05/01/25 19:28 Pulse Rate 95 H 105 H Respiratory Rate 20 20 Pulse Oximetry 90 L 93 Oxygen Delivery Method Nasal Cannula Nasal Cannula Oxygen Flow Rate 2 2 Fraction of Inspired Oxygen 28 28 Fraction of Inspired Oxygen 28 SaO2/FiO2 Ratio 328 Oxygen Delivery Method Nasal Cannula Oxygen Flow Rate 2 Narrative Exam Narrative: GEN: Pleasant elderly male, Alert and oriented x 3, NAD HEENT:NC, Face symmetric CHEST: Respiratory excursions symmetric, coarse and diminished but CTAB CV: RRR, no M/R/G ABD: Soft, NT/ND, BT present in all 4 quadrants, no organomegaly or masses EXTR: warm, well perfused, no C/C/1+ bilateral lower extremity edema SKIN: warm and dry, no rash NEURO: Alert and oriented x 3, nonfocal Objective Labs 05/01/25 05:00 05/01/25 05:00 Labs: Laboratory Results - last 24 hr 05/01/25 05:00 WBC 13.4 H RBC 4.00 L Hgb 11.0 L Hct 33.4 L MCV 83.6 MCH 27.4 MCHC 32.7 RDW 14.5 Plt Count 512 H Neut % (Auto) 89.5 H Lymph % (Auto) 7.8 L [place] % (Auto) 2.1 L Eos % (Auto) 0.1 L Baso % (Auto) 0.5 Neut # (Auto) 27203 H Lymph # (Auto) 1000 L [place] # (Auto) 300 Eos # (Auto) 0 Baso # (Auto) 100 Sodium 135 L Potassium 4.2 Chloride 101 Carbon Dioxide 31 BUN 16 Creatinine 0.63 L Estimated GFR > 60 BUN/Creatinine Ratio 25.4 H Glucose 184 H Calcium 8.1 L PFSH Medical History Acid reflux Diabetes Social History household members: spouse Assessment & Plan Assessment & Plan narrative: 1. Community-acquired pneumonia Failed outpatient treatment. Possible component of immunotherapy induced pneumonitis. Patient continues on cefepime (presently day 4) and vancomycin. He is medically improving. White blood cell count is down from 17.6 yesterday to 13.4 today. Blood cultures are negative to date. Sputum cultures thus far growing Elodia albicans and Serratia. MRSA screen was also negative. Will DC vancomycin. 2. Acute hypoxic respiratory failure He is currently on 2 L of oxygen via nasal cannula. Will continue to monitor. 3. Diabetes mellitus with peripheral neuropathy Blood sugars have been ranging between 163 and 265. Will continue fingersticks and sliding scale. 4. Bladder cancer He has been on Keytruda on an outpatient basis. This has been held. Code status Full Prophylaxis Continue Lovenox Disposition Home when clinically improved. Possible discharge as soon as tomorrow. Time-Based Coding :: [TOTAL MINUTES] spent with patient and on the chart (including review of chart, obtaining history, exam, reviewing outside data, placing orders, documenting exam and treatment plan, and counseling patient) on [DATE].
[2025-05-01] MEDS: TRAZODONE 50 MG TABLET PO (20:19)
[2025-05-01 23:45] VITALS: PULSE 96; O2SAT 92
[2025-05-02] MEDS: methylPREDNISolone 125 MG/2 ML VIAL 60 MG IV (04:42)
[2025-05-02] MEDS: ALBUTEROL/IPRATROPIUM 3 ML AMPUL INH ×2 (05:35→10:01)
[2025-05-02 07:30] VITALS: O2SAT 92
[2025-05-02 08:00] VITALS: BP 137/68; PULSE 95; RESP 19; TEMP 35.8; O2SAT 91
[2025-05-02] MEDS: INSULIN LISPRO 100 UNIT/ML 3ML VIAL SUBCUT ×2 (08:29→12:10)
[2025-05-02] MEDS: ENOXAPARIN 40 MG/0.4 ML SYRINGE SUBCUT (08:29)
[2025-05-02] MEDS: LORATADINE 10 MG TABLET PO (08:29)
[2025-05-02 10:03] VITALS: PULSE 98; RESP 20; O2SAT 94
--- NOTE | 2025-05-02 10:23 | CM.DPC ---
DCP Cont: Per MD, pt being treated for Ketruda toxicity vs recurrent pneumonia and down to 3LO2 but anticipate another 1-2 days before discharge with spouse. Likely will d/c on home oxygen which was set up at pt's last discharge from the hospital. JACKIE Pedro
--- NOTE | 2025-05-02 11:45 | PM.DS.1 ---
History of Present Illness History of Present Illness Date Patient Seen: 05/02/25 Time Patient Seen: 11:49 Chief complaint: Low oxygen Narrative: Per admitting provider, 80M with PMH of DM2 with neuropathy, GERD, past h/o bladder cancer discharged from this hospital 04/20/25 for community-acquired pneumonia with 4 days outpatient levofloxacin and new 3L O2 requirement (from baseline room air) presents with worsening dyspnea and hypoxia now requiring 4L oxygen for adequate oxygen saturation. He is not septic with no fever, hypotension but does have SIRS with elevated procalcitonin, leucocytosis, tachycardia, and tachypnea. CTA showed no evidence of PE but did show expanding bilateral pneumonia. He was given vancomycin, cefepime, methylprednisolone, and duonebs in ED. Discharge Providers Provider Date of admission: 04/27/25 23:03 Discharge Date: 05/02/25 Consults: 04/28/25 08:19 Consult to Speech Therapy Evaluate & Treat Comment: recurrent PNA eval for poss. aspiration Physician Instructions: Evaluate and treat Discharge provider: Zeeshan Mejia DO Summary Hospital Course Discharge Diagnosis: 1. Community-acquired pneumonia 2. Acute hypoxic respiratory failure 3. Diabetes mellitus with peripheral neuropathy 4. Bladder cancer Hospital Course: This is an 80 year old male who was admtited for presumed recurrent pneumonia. He also reported that he is on Keytruda during this admission. He started fairly marked improvement after initiation of steroids with quick improvement in hypoxia. He was previously discharged home on oxygen. He was requiring 2L of O2 at the time of discharge, and desperately wished to discharge home since he was feeling otherwise quite well. We discussed continued observation vs discharge home and the risks and benefits of each and the patient elected for discharge home. He was discharged on a 4 week steroid taper for presumed Keytruda pneumonitis. Sputum culture also grew Serratia. He was on cefepime in the hospital and vancomycin. He was discharged on doxycycline based on sensitivity data from his culture. Recommend follow up with pulmonology after discharge along with oncology. Recommend cessation of keytruda in the near future. Time Spent with Patient Time spent: Greater than 30 minutes Exam Vital Signs (past 8 hours): - 05/02/25 07:30 05/02/25 08:00 05/02/25 10:03 Temperature 96.5 F L Pulse Rate 95 H 98 H Respiratory Rate 19 20 Blood Pressure 137/68 Pulse Oximetry 92 91 94 Oxygen Delivery Method Nasal Cannula Nasal Cannula Oxygen Flow Rate 4 4 4 Fraction of Inspired Oxygen 28 SaO2/FiO2 Ratio 328 Oxygen Delivery Method Nasal Cannula Oxygen Flow Rate 4 Narrative Exam Narrative: GEN: Pleasant elderly male, Alert and oriented x 3, NAD HEENT:NC, Face symmetric CHEST: Respiratory excursions symmetric, coarse and diminished but CTAB CV: RRR, no M/R/G ABD: Soft, NT/ND, BT present in all 4 quadrants, no organomegaly or masses EXTR: warm, well perfused, no C/C/1+ bilateral lower extremity edema SKIN: warm and dry, no rash NEURO: Alert and oriented x 3, nonfocal Objective Labs 05/01/25 05:00 05/01/25 05:00 [facility] Medical History Acid reflux Diabetes Social History household members: spouse Discharge Plan Discharge Plan Patient Disposition: Home Provider Discharge Comment: You were admitted to the hospital with worsening shortness of breath. This may be due to pneumonia for which you need a slight change in antibiotics on discharge, the other possibility is pulmonary toxicity with Keytruda for which you should complete a 4 week steroid taper as prescribed. Please discuss with your oncology team this possible reaction prior to your next planned infusion. Discharge orders & Medications Prescriptions: New prednisone 20 mg tablet See Rx Instructions .ROUTE .COMPLEX Qty: 46 0RF Rx Instructions: Take 60 mg daily for 1 week, followed by 40 mg daily for 1 week, 20 mg daily for 1 week, then 10 (1/2 tab) mg daily for 1 week. doxycycline hyclate 100 mg tablet 100 mg PO BID 3 Days Qty: 6 0RF furosemide 20 mg tablet 20 mg PO DAILY PRN (Reason: edema) 30 Days Qty: 30 0RF Continued gabapentin 400 mg capsule 400 mg PO .HS metformin 500 mg tablet extended release 24 hr 500 mg PO DAILY loratadine 10 mg tablet 10 mg PO DAILY omeprazole 20 mg capsule,delayed release(DR/EC) 20 mg PO DAILY albuterol sulfate 90 mcg/actuation HFA aerosol inhaler 2 puff INHALATION Q4H PRN (Reason: shortness of breath or wheezing) Diet/Activity/Treatments Diet: Diet as Tolerated and Regular Activity: As tolerated, no restrictions Visit Report/Discharge Packet Instructions: DI for Pneumonia -- Adult, Prednisone, Doxycycline (By mouth) Stand Alone Forms: Patient Portal/API, Stroke Signs & Symptoms
--- NOTE | 2025-05-02 14:50 | PC.NURSE ---
Pt is dressed and ready for discharge home with Daughter Darian. Portacath has been flushed and deaccessed. D/C instructions reviewed with Patient and Family-discharge medication and last dose discussed. Went over stroke education and follow up. Pt to follow up with his oncologist and PCP as recommended. Pt and family denied further questions and Pt was taken out via w/c by RN to POV with family and all belongings.
--- NOTE | 2025-05-02 15:21 | CM.DPC ---
DCP Discharge Home Per MD, pt is medically stable to d/c home today with outpt f/u and ongoing home O2 and no identified barriers to discharge. Per RN, discharge instructions provided and no concerns noted and Dtr bedside for transport home. JACKIE Pedro
== END 2025-05-02 14:54 | disposition home or self-care (01) | DRG 177 ==
LOC: ED 22:57 → AC 23:04
PROVIDERS: Family Medicine; Internal Medicine; Admitting Provider Internal Medicine; Emergency Provider Emergency Medicine; Referring Provider Emergency Medicine; Visit Provider Internal Medicine
DX: J15.69 Pneumonia due to other Gram-negative bacteria (principal); J96.01 Acute respiratory failure with hypoxia; E87.1 Hypo-osmolality and hyponatremia; K21.9 Gastro-esophageal reflux disease without esophagitis; E11.42 Type 2 diabetes mellitus with diabetic polyneuropathy; E88.09 Other disorders of plasma-protein metabolism, not elsewhere classified; D75.839 Thrombocytosis, unspecified; C67.9 Malignant neoplasm of bladder, unspecified; F17.210 Nicotine dependence, cigarettes, uncomplicated; J70.4 Drug-induced interstitial lung disorders, unspecified; T50.995A Adverse effect of other drugs, medicaments and biological substances, initial encounter; Z79.84 Long term (current) use of oral hypoglycemic drugs; Z95.828 Presence of other vascular implants and grafts
CPT/HCPCS: 36415; 71275; 80048; 80053; 80202; 81001; 82962; 83605; 83690; 83735; 83880; 84100; 84145; 84484; 85025; 85610; 85730; 87040; 87070; 87077; 87186; 87205; 87797; 92610; 93005; 93010; 93306; 94640; 94667; 94760; 94762; 96361; 96365; 96375; 99285; J0692; J1642; J1650; J1815; J2919; Q9967